=== PATIENT | female | born 1960 | race Caucasian/White ===

== ENCOUNTER 2020-07-29 06:35 | Emergency (ER) | payer OTHER ==
[2020-07-29] MEDS ORDERED: solu-MEDROL 125 MG IM ONE (06:47)
[2020-07-29] MEDS ORDERED: BENADRYL 25 MG CAPSULE PO ONE (06:48)
[2020-07-29] MEDS ORDERED: Pepcid 20 MG PO ONE (06:48)
--- NOTE | 2020-07-29 06:48 | ERPHSYRPT ---
- History of Present Illness Time Seen by Provider: 07/29/20 06:45 Source: patient Exam Limitations: no limitations Physician History: This is a 59-year-old white female who was using hair dye yesterday and she began breaking out last night. Her rash is in the distribution of the scalp where the dye was placed. She did take Benadryl but this morning, she has a worsening rash present. She has no wheezing and she has no difficulty breathing. She did take 2 Benadryl last night but did not seem to help. Quality: itchy Severity: moderate Location: scalp Possible Causes: other (Exposure to hair dye) Associated Symptoms: change in skin texture, rash Travel Risk - International Travel Have you traveled outside of the country in past 3 weeks: No - Coronavirus Screening Are you exhibiting any of the following symptoms?: No Close contact with a COVID-19 positive Pt in past 14-21 Days: No - Review of Systems Constitutional: No Symptoms Eyes: No Symptoms Ears, Nose, & Throat: No Symptoms Respiratory: No Symptoms Cardiac: No Symptoms Abdominal/Gastrointestinal: No Symptoms Genitourinary Symptoms: No Symptoms Musculoskeletal: No Symptoms Skin: Rash Neurological: No Symptoms Psychological: No Symptoms Endocrine: No Symptoms Hematologic/Lymphatic: No Symptoms Immunological/Allergic: No Symptoms All Other Systems: Reviewed and Negative - Past Medical History Pertinent Past Medical History: No Neurological History: No Pertinent History ENT History: No Pertinent History Cardiac History: No Pertinent History Respiratory History: No Pertinent History Endocrine Medical History: No Pertinent History Musculoskeletal History: No Pertinent History GI Medical History: No Pertinent History History: No Pertinent History Psycho-Social History: No Pertinent History Female Reproductive Disorders: No Pertinent History - Past Surgical History Past Surgical History: Yes - Nursing Vital Signs Nursing Vital Signs: Initial Vital Signs Temperature 98.4 F 07/29/20 06:43 Pulse Rate 98 H 07/29/20 06:43 Respiratory Rate 18 07/29/20 06:43 Blood Pressure 183/105 07/29/20 06:43 O2 Sat by Pulse Oximetry 99 07/29/20 06:43 Pain Scale Pain Intensity 5 - Physical Exam General Appearance: no apparent distress, alert, anxiety Eye Exam: PERRL/EOMI, other (Puffiness periorbitally. There is no cellulitis p resent.) Ears, Nose, Throat Exam: normal ENT inspection, moist mucous membranes Neck Exam: non-tender, supple, full range of motion, other (On the neck intubation of the hair lying and on the posterior neck) Respiratory Exam: normal breath sounds, lungs clear, No chest tenderness, No respiratory distress, No wheezing, No stridor Cardiovascular Exam: regular rate/rhythm, normal heart sounds, normal peripheral pulses Gastrointestinal/Abdomen Exam: soft, normal bowel sounds, No tenderness Pelvic Exam: not done Rectal Exam: not done Back Exam: normal inspection, normal range of motion, No CVA tenderness, No vertebral tenderness Extremity Exam: normal inspection, normal range of motion, pelvis stable Skin Exam: rash (In the distribution of the patient's hairline including her bilateral auricles and the posterior neck.) Lymphatic Exam: No adenopathy SpO2 Interpretation: normal O2 Delivery: Room Air - Course Nursing assessment & vital signs reviewed: Yes Ordered Tests: Medication Summary Discontinued Medications Generic Name Dose Route Start Last Admin Trade Name Freq PRN Reason Stop Dose Admin Diphenhydramine HCl 50 mg 07/29/20 06:48 07/29/20 06:52 Benadryl 25 Mg Capsule PO 07/29/20 06:49 50 mg STAT ONE Administration Diphenhydramine HCl Confirm 07/29/20 06:50 Benadryl 25 Mg Capsule Administered 07/29/20 06:51 Dose 50 mg .ROUTE .STK-MED ONE Famotidine 40 mg 07/29/20 06:48 07/29/20 06:52 Pepcid 20 Mg PO 07/29/20 06:49 40 mg STAT ONE Administration Famotidine Confirm 07/29/20 06:50 Pepcid 20 Mg Administered 07/29/20 06:51 Dose 40 mg .ROUTE .STK-MED ONE Methylprednisolone Sodium Succinate 125 mg 07/29/20 06:47 07/29/20 06:53 Solu-Medrol 125 Mg IM 07/29/20 06:48 125 mg STAT ONE Administration Methylprednisolone Sodium Succinate Confirm 07/29/20 06:50 Solu-Medrol 125 Mg Administered 07/29/20 06:51 Dose 125 mg .ROUTE .STK-MED ONE - Progress Progress: unchanged Progress Note: 07/29/20 07:00 Blood pressure of patient is elevated. She is not taking her blood pressure medicine needs to do so. She does not have a local doctor and will provide her with a list of local doctors that are taking patients. Counseled pt/family regarding: diagnosis, need for follow-up - Departure Departure Disposition: Home Clinical Impression: Allergic reaction Condition: Stable Critical Care Time: No Prescriptions: Prednisone 10 mg [Deltasone 10 mg] 10 mg PO TID #12 tablet Famotidine 20 mg [Pepcid 20 MG] 20 mg PO DAILY #10 tablet
[2020-07-29] MEDS ORDERED: BENADRYL 25 MG CAPSULE ONE (06:50)
[2020-07-29] MEDS ORDERED: solu-MEDROL 125 MG ONE (06:50)
[2020-07-29] MEDS ORDERED: Pepcid 20 MG ONE (06:50)
[2020-07-29 07:22] VITALS: BP 188/104; PULSE 88; O2SAT 98
== END 2020-07-29 07:29 | disposition home or self-care (01) ==
LOC: ED 06:35
DX: R21 Rash and other nonspecific skin eruption (principal); T78.49XA Other allergy, initial encounter; L29.9 Pruritus, unspecified
CPT/HCPCS: 96372; 99284; J2930; A9270-GY

== ENCOUNTER 2021-02-21 09:57 | Emergency (ER) | payer OTHER ==
[2021-02-21] MEDS ORDERED: DUONEB 0.5-3 MG/3 ml Neb IH ONE ×2 (10:21→10:51)
[2021-02-21] MEDS ORDERED: solu-MEDROL 125 MG, Sterile H2O 10 ml 2 ML IV ONE ×2 (10:21)
[2021-02-21] MEDS ORDERED: solu-MEDROL ONE (10:28)
[2021-02-21] MEDS ORDERED: Sterile H2O 10 ml IJ ONE (10:28)
[2021-02-21 10:54] LABS: Absolute Neutrophil Ct (ANC) 5.73 (1.4-6.9); BASOPHIL % 0.1 % (0.0-0.4); Basophil (Absolute #) 0.01 (0-0.4); Eosinophil (Absolute #) 0.09 (0-0.5); Hematocrit 43.2 % (35-47); Hemoglobin 13.8 gm/dl (12.0-16.0); Lymphocyte (Absolute #) 2.38 (1.0-4.6); Lymphocytes % 26.5 % (24.0-44.0); Mean Cell Volume 84.5 fl (78-100); Mean Corpuscular Hgb Concent. 31.9 g/dl (32-36); Mean Platelet Volume 12.2 fl (7.5-11.0); Monocyte (Absolute #) 0.78 (0.0-1.3); Monocytes % 8.7 % (0.0-12.0); Neutrophil % 63.7 % (36.0-66.0); Platelet Count 247 K/mm3 (150-450); Red Blood Count 5.11 M/mm3 (4.1-5.4); Red Cell Distribution Width 14.7 % (11.5-14.0)
[2021-02-21 11:08] LABS: Appearance SLIGHTLY CLOUDY (CLEAR); Bilirubin NEGATIVE (NEGATIVE); Blood NEGATIVE Ery/ul (0-5); Epithelial Cells RARE /HPF (FEW); Glucose NEGATIVE (NEGATIVE); Hyaline Casts 0-2 /LPF (0-2); Ketones NEGATIVE (NEGATIVE); Leukocyte Esterase NEGATIVE (NEGATIVE); Mucus SLIGHT /HPF (NEGATIVE); Nitrite NEGATIVE (NEGATIVE); Protein,Urine Dip NEGATIVE (Negative); Specific Gravity 1.013 (1.005-1.025); Urobilinogen NEGATIVE mg/dL (0-1)
[2021-02-21 11:14] LABS: ALBUMIN 4.4 g/dL (3.5-5.0); ALKALINE PHOSPHATASE 84 U/L (38-126); ANION GAP 17.5 MEQ/L (5-15); BLOOD UREA NITROGEN 7 mg/dL (7-17); CHLORIDE 102 mmol/L (98-107); Calcium 10.4 mg/dL (8.4-10.2); Carbon Dioxide 24 mmol/L (22-30); Creatinine 1 0.61 mg/dL (0.52-1.04); EST GLOMERULAR FILTRATION RATE > 60.0 ML/MIN; Glucose 95 mg/dL (74-106); MAGNESIUM 1.8 mg/dL (1.6-2.3); NT PRO BNP 25.3 pg/mL (0-900); Potassium 4.4 mmol/L (3.5-5.1); SGOT/AST 31 U/L (14-36); SGPT/ALT 26 U/L (0-35); SODIUM 139 mmol/L (137-145); Total Protein 7.9 g/dL (6.3-8.2)
--- NOTE | 2021-02-21 11:28 | ERPHSYRPT ---
- History of Present Illness Time Seen by Provider: 02/21/21 10:03 Source: patient Exam Limitations: no limitations Patient Subjective Stated Complaint: Pt states "I started to feel bad on and now I have horrible congestion and been coughing up thick yellow and green mucus." Triage Nursing Assessment: Pt presented alert and oriented X 3, skin pwd. Pt ambulates with an upright steady gait, able to speak in clear full sentences pt slightly tachypneic with occasional productive cough. Physician History: 60 years old female with history of tobacco abuse, COPD, hypertension presented in the ER with 3 to 4 days history of increasing cough productive of yellow- green sputum moderate in amount with associated increase sinus/chest congestion and wheezing. Patient has been using inhalers as recommended and also tried [id number] but does not seem it is loosening up and she is having choking sensation with repeated coughing bouts. Denies any chest pain but has generalized soreness. No fever or chills reported. Denies any palpitations. Continues to smoke 1 to 2 packs a day. Timing/Duration: day(s) (3), gradual onset, worse Cough Quality/Degree: moderate, productive cough, sputum Possible Cause: occasional episodes Modifying Factors: Improves With: albuterol inhaler. Worsens With: coughing Associated Symptoms: cough, nasal congestion, nasal drainage, sinus infection, wheezing, No fever, No chest pain/soreness, No dizziness, No earache, No facial pain, No headache, No lightheadedness, No muscle aches, No shortness of breath, No sore throat Allergies/Adverse Reactions: hair dye Allergy (Intermediate, Uncoded 07/29/20 07:04) Rash Home Medications: Albuterol Sulfate 2.5 mg IH DAILY 02/21/21 [History] Albuterol Sulfate [Proair Digihaler] 90 mcg IH DAILY 02/21/21 [History] lisinopriL [Lisinopril] 20 mg PO DAILY 02/21/21 [History] Hx Tetanus, Diphtheria Vaccination/Date Given: No Hx Influenza Vaccination/Date Given: No Hx Pneumococcal Vaccination/Date Given: No Immunizations Up to Date: Yes Travel Risk - International Travel Have you traveled outside of the country in past 3 weeks: No - Coronavirus Screening Are you exhibiting any of the following symptoms?: Yes Symptoms: Cough: New Onset Close contact with a COVID-19 positive Pt in past 14-21 Days: No - Vaccine Status Have you recieved a Covid-19 vaccination: No - Review of Systems Constitutional: Fatigue Eyes: No Symptoms Ears, Nose, & Throat: Nose Congestion, Sinus Drainage Respiratory: Cough, Wheezing Cardiac: No Symptoms Abdominal/Gastrointestinal: No Symptoms Genitourinary Symptoms: No Symptoms Musculoskeletal: No Symptoms Skin: No Symptoms Neurological: No Symptoms Psychological: No Symptoms Endocrine: No Symptoms Hematologic/Lymphatic: No Symptoms Immunological/Allergic: No Symptoms - Past Medical History Pertinent Past Medical History: Yes Neurological History: No Pertinent History ENT History: No Pertinent History Cardiac History: Hypertension Respiratory History: COPD Endocrine Medical History: No Pertinent History Musculoskeletal History: No Pertinent History GI Medical History: No Pertinent History History: No Pertinent History Psycho-Social History: Attention Deficit Disorder, Depression Female Reproductive Disorders: No Pertinent History - Past Surgical History Past Surgical History: No - Social History Smoking Status: Current every day smoker How long have you smoked: years Exposure to second hand smoke: Yes Drug Use: none Patient Lives Alone: Yes - Female History Hx Now: No - Nursing Vital Signs Nursing Vital Signs: Initial Vital Signs Temperature 98.0 F 02/21/21 10:01 Pulse Rate 90 02/21/21 10:01 Respiratory Rate 22 02/21/21 10:01 Blood Pressure 190/102 02/21/21 10:01 O2 Sat by Pulse Oximetry 92 L 02/21/21 10:01 Pain Scale Pain Intensity 0 - Physical Exam General Appearance: no apparent distress, alert Eye Exam: PERRL/EOMI Ears, Nose, Throat Exam: TMs normal, pharyngeal erythema Neck Exam: normal inspection, non-tender, supple, full range of motion Respiratory Exam: diminished breath sounds, wheezing, No respiratory distress, No accessory muscle use Cardiovascular Exam: regular rate/rhythm, normal heart sounds Gastrointestinal/Abdomen Exam: soft, normal bowel sounds Back Exam: normal inspection, normal range of motion Extremity Exam: normal inspection, normal range of motion Neurologic Exam: alert, oriented x 3, cooperative, lead coater II-XII nml as tested Skin Exam: normal color SpO2 Interpretation: normal SpO2: 95 O2 Delivery: Room Air - Course EKG Interpreted by Me: RATE (79), Sinus Rhythm, NORMAL AXIS, NORMAL INTERVALS, NORMAL QRS Ordered Tests: Active Orders 24 hr Category Date Time Status Scraper Operator STAT Care 02/21/21 10:21 Active EKG-ER Only STAT Care 02/21/21 10:21 Active IV Insertion STAT Care 02/21/21 10:21 Active CHEST 1 VIEW (PORTABLE) Stat Exams 02/21/21 10:21 Taken BLOOD CULTURE Stat Lab 02/21/21 10:12 Received CBC W DIFF Stat Lab 02/21/21 10:12 Completed CMP Stat Lab 02/21/21 10:12 Completed Lactic Acid Stat Lab 02/21/21 10:21 Completed MAGNESIUM Stat Lab 02/21/21 10:12 Completed NT PRO BNP Stat Lab 02/21/21 10:12 Completed TROPONIN Q3H Lab 02/21/21 10:12 Completed TROPONIN Q3H Lab 02/21/21 13:30 Ordered TROPONIN Q3H Lab 02/21/21 16:30 Ordered TROPONIN Q3H Lab 02/21/21 19:30 Ordered TROPONIN Q3H Lab 02/21/21 22:30 Ordered UA W/RFX UR CULTURE Stat Lab 02/21/21 10:27 Completed Respiratory Therapy Assessment DAILY RT 02/21/21 10:58 Completed Medication Summary Discontinued Medications Generic Name Dose Route Start Last Admin Trade Name Freq PRN Reason Stop Dose Admin Albuterol/Ipratropium 3 ml 02/21/21 10:21 02/21/21 10:54 Duoneb 0.5-3 Mg/3 Ml Neb IH 02/21/21 10:22 3 ml STAT ONE Administration Albuterol/Ipratropium Confirm 02/21/21 10:51 Duoneb 0.5-3 Mg/3 Ml Neb Administered 02/21/21 10:52 Dose 3 ml IH .STK-MED ONE Methylprednisolone Sodium 0 mg 02/21/21 10:21 02/21/21 10:29 Succinate 125 mg/ Sterile IV 02/21/21 10:22 125 mg Water 2 ml STAT ONE Administration Methylprednisolone Sodium Succinate Confirm 02/21/21 10:28 Solu-Medrol Administered 02/21/21 10:29 Dose 125 mg .ROUTE .STK-MED ONE Sterile Water Confirm 02/21/21 10:28 Sterile H2o 10 Ml Administered 02/21/21 10:29 Dose 10 ml IJ .STK-MED ONE Lab/Rad Data: Laboratory Result Diagrams 02/21/21 10:12 02/21/21 10:12 Laboratory Results 0802/21/21 02/21/21 Range/Units 10:27 10:21 10:12 WBC (4.0-10.5) K/mm3 RBC (4.1-5.4) M/mm3 Hgb (12.0-16.0) gm/dl Hct (35-47) % MCV (78-100) fl MCH (26-32) pg MCHC (32-36) g/dl RDW (11.5-14.0) % Plt Count (150-450) K/mm3 MPV (7.5-11.0) fl Gran % (36.0-66.0) % Eos # (Auto) (0-0.5) Absolute Lymphs (auto) (1.0-4.6) Absolute Monos (auto) (0.0-1.3) Lymphocytes % (24.0-44.0) % Monocytes % (0.0-12.0) % Eosinophils % (0.00-5.0) % Basophils % (0.0-0.4) % Absolute Granulocytes (1.4-6.9) Basophils # (0-0.4) Sodium (137-145) mmol/L Potassium (3.5-5.1) mmol/L Chloride (98-107) mmol/L Carbon Dioxide (22-30) mmol/L Anion Gap (5-15) MEQ/L BUN (7-17) mg/dL Creatinine (0.52-1.04) mg/dL Estimated GFR ML/MIN Glucose (74-106) mg/dL Lactic Acid 0.7 (0.4-2.0) Calcium (8.4-10.2) mg/dL Magnesium (1.6-2.3) mg/dL Total Bilirubin (0.2-1.3) mg/dL AST (14-36) U/L ALT (0-35) U/L Alkaline Phosphatase (38-126) U/L Troponin I < 0.012 (0.000-0.034) ng/mL NT-Pro-B Natriuret Pep (0-900) pg/mL Serum Total Protein (6.3-8.2) g/dL Albumin (3.5-5.0) g/dL Urine Color YELLOW (YELLOW) Urine Appearance SLIGHTLY CLOUDY (CLEAR) Urine pH 6.0 (5-6) Ur Specific Trinity 1.013 (1.005-1.025) Urine Protein NEGATIVE (Negative) Urine Ketones NEGATIVE (NEGATIVE) Urine Blood NEGATIVE (0-5) Bruce/ul Urine Nitrite NEGATIVE (NEGATIVE) Urine Bilirubin NEGATIVE (NEGATIVE) Urine Urobilinogen NEGATIVE (0-1) mg/dL Ur Leukocyte Esterase NEGATIVE (NEGATIVE) Urine WBC (Auto) NONE (0-5) /HPF Urine RBC (Auto) NONE (0-2) /HPF U Hyaline Cast (Auto) 0-2 (0-2) /LPF U Epithel Cells (Auto) RARE (FEW) /HPF Urine Bacteria (Auto) NONE (NEGATIVE) /HPF Urine Mucus (Auto) SLIGHT (NEGATIVE) /HPF Urine Culture Reflexed NO (NO) Urine Glucose NEGATIVE (NEGATIVE) mg/dL 02/21/21 02/21/21 Range/Units 10:12 10:12 WBC 9.0 (4.0-10.5) K/mm3 RBC 5.11 (4.1-5.4) M/mm3 Hgb 13.8 (12.0-16.0) gm/dl Hct 43.2 (35-47) % MCV 84.5 (78-100) fl MCH 27.0 (26-32) pg MCHC 31.9 L (32-36) g/dl RDW 14.7 H (11.5-14.0) % Plt Count 247 (150-450) K/mm3 MPV 12.2 H (7.5-11.0) fl Gran % 63.7 (36.0-66.0) % Eos # (Auto) 0.09 (0-0.5) Absolute Lymphs (auto) 2.38 (1.0-4.6) Absolute Monos (auto) 0.78 (0.0-1.3) Lymphocytes % 26.5 (24.0-44.0) % Monocytes % 8.7 (0.0-12.0) % Eosinophils % 1.0 (0.00-5.0) % Basophils % 0.1 (0.0-0.4) % Absolute Granulocytes 5.73 (1.4-6.9) Basophils # 0.01 (0-0.4) Sodium 139 (137-145) mmol/L Potassium 4.4 (3.5-5.1) mmol/L Chloride 102 (98-107) mmol/L Carbon Dioxide 24 (22-30) mmol/L Anion Gap 17.5 H (5-15) MEQ/L BUN 7 (7-17) mg/dL Creatinine 0.61 (0.52-1.04) mg/dL Estimated GFR > 60.0 ML/MIN Glucose 95 (74-106) mg/dL Lactic Acid (0.4-2.0) Calcium 10.4 H (8.4-10.2) mg/dL Magnesium 1.8 (1.6-2.3) mg/dL Total Bilirubin 0.50 (0.2-1.3) mg/dL AST 31 (14-36) U/L ALT 26 (0-35) U/L Alkaline Phosphatase 84 (38-126) U/L Troponin I (0.000-0.034) ng/mL NT-Pro-B Natriuret Pep 25.3 (0-900) pg/mL Serum Total Protein 7.9 (6.3-8.2) g/dL Albumin 4.4 (3.5-5.0) g/dL Urine Color (YELLOW) Urine Appearance (CLEAR) Urine pH (5-6) Ur Specific Trinity (1.005-1.025) Urine Protein (Negative) Urine Ketones (NEGATIVE) Urine Blood (0-5) Bruce/ul Urine Nitrite (NEGATIVE) Urine Bilirubin (NEGATIVE) Urine Urobilinogen (0-1) mg/dL Ur Leukocyte Esterase (NEGATIVE) Urine WBC (Auto) (0-5) /HPF Urine RBC (Auto) (0-2) /HPF U Hyaline Cast (Auto) (0-2) /LPF U Epithel Cells (Auto) (FEW) /HPF Urine Bacteria (Auto) (NEGATIVE) /HPF Urine Mucus (Auto) (NEGATIVE) /HPF Urine Culture Reflexed (NO) Urine Glucose (NEGATIVE) mg/dL - Progress Progress: improved Air Movement: good Progress Note: 02/21/21 12:13 60 years old is evaluated for worsening cough and wheezing without significant shortness of breath. Patient has normal white count, grossly unremarkable chemistries. Negative troponins. EKG did not show any acute ischemic changes. Patient's continues to smoke. Symptoms are consistent with COPD exacerbation/bronchitis. Given Solu-Medrol in here. We will continue with short course of steroid and antibiotics to go home. Does not seem cardiac in nature at all. Does not seem pulmonary embolism and have not done any work-up, seems more of a COPD bronchitis from initial URI. Recommended outpatient follow-up and smoking cessation. Discussed signs symptoms of worsening needing return to ER which she seems understanding. 02/21/21 12:15 Blood Culture(s) Obtained: Yes Antibiotics given: Yes Counseled pt/family regarding: lab results, diagnosis, need for follow-up, rad results - Departure Departure Disposition: Home Clinical Impression: COPD with acute bronchitis Condition: Stable Critical Care Time: No Referrals: ADALGISA BALDERRAMA [Primary Care Provider] - (1-2 days for reevaluation) Instructions: Chronic Obstructive Pulmonary Disease, Cough, Adult (DC), Exacerbation of COPD (DC) Additional Instructions: Do not smoke. Continue with your inhalers. Continue with steroid and antibiotics. Follow-up with primary care physician for reevaluation. Return to ER for worsening cough or if develop fever chills/shortness of breath etc. Prescriptions: Prednisone 20 mg [Deltasone 20 mg] 60 mg PO DAILY 5 Days #15 tablet Azithromycin 250 mg [Zithromax 250 MG TABLET] 250 mg PO ZPACK #6 tablet
[2021-02-21 12:05] VITALS: BP 155/91
[2021-02-21 12:28] VITALS: PULSE 90; O2SAT 97
--- NOTE | 2021-02-21 17:28 | XRAY ---
Indication: Pneumonia. Comparison: None Portable chest clear. Heart not enlarged. Bony thorax intact with mild degenerative changes.
== END 2021-02-21 12:29 | disposition home or self-care (01) ==
LOC: ED 09:57
DX: Z87.891 Personal history of nicotine dependence (principal); I10 Essential (primary) hypertension; Z79.899 Other long term (current) drug therapy
CPT/HCPCS: 36000; 36415; 71045; 80053; 81001; 83605; 83735; 83880; 84484; 85025; 87040; 93005; 93041; 94640; 96374; 99284; J2930; A9270-GY

== ENCOUNTER 2021-09-05 12:17 | Emergency (ER) | payer OTHER ==
[2021-09-05] MEDS ORDERED: DUONEB 0.5-3 MG/3 ml Neb IH ONE ×2 (12:37→12:55)
[2021-09-05 12:46] LABS: Hematocrit 47.4 % (35-47); Hemoglobin 15.4 gm/dl (12.0-16.0); Mean Cell Volume 81.4 fl (78-100); Mean Corpuscular Hemoglobin 26.5 pg (26-32); Mean Corpuscular Hgb Concent. 32.5 g/dl (32-36); Mean Platelet Volume 12.1 fl (7.5-11.0); Platelet Count 146 K/mm3 (150-450); Red Blood Count 5.82 M/mm3 (4.1-5.4); Red Cell Distribution Width 14.9 % (11.5-14.0); White Blood Count 4.4 K/mm3 (4.0-10.5)
[2021-09-05] MEDS ORDERED: PULMICORT 0.5 MG/2 ML RESPULES IH ONE ×2 (12:46→12:50)
--- NOTE | 2021-09-05 12:49 | ERPHSYRPT ---
- History of Present Illness Time Seen by Provider: 09/05/21 12:46 Source: patient Exam Limitations: no limitations Patient Subjective Stated Complaint: pt reports shortness of breath for approx one week, pt states she has chest congestion that she feels is getting worse, pt states when she coughs she becomes short of breath, pt states she was taking some OTC medication for mucous with no results. Triage Nursing Assessment: pt is aox3, pupils perrl, afebrile, pt is short of breath on arrival but is able to easily ambulate to t area, pt is able to speak in full sentences, pt with expiratory wheezes heard posteriorly to the upper and lower bilat lobes, intermittent cough noted upon exam, pt radial pulses strong and equal, cap refill < 3 seconds, pt skin pink warm dry, no edema appreciated. Physician History: pt reports shortness of breath for approx one week, pt states she has chest congestion that she feels is getting worse, pt states when she coughs she becomes short of breath, pt states she was taking some OTC medication for mucous with no results. Timing/Duration: day(s) (5-7 days) Severity of Dyspnea-Max: moderate Severity of Dyspnea-Current: moderate Possible Cause: frequent episodes Associated Symptoms: cough, wheezing Allergies/Adverse Reactions: hair dye Allergy (Intermediate, Uncoded 09/05/21 12:29) Rash Home Medications: Albuterol Sulfate 2.5 mg IH DAILY 02/21/21 [History] Albuterol Sulfate [Proair Digihaler] 90 mcg IH DAILY 02/21/21 [History] lisinopriL [Lisinopril] 20 mg PO DAILY 02/21/21 [History] Hx Tetanus, Diphtheria Vaccination/Date Given: Yes Hx Influenza Vaccination/Date Given: No Hx Pneumococcal Vaccination/Date Given: No Immunizations Up to Date: Yes Travel Risk - International Travel Have you traveled outside of the country in past 3 weeks: No - Coronavirus Screening Are you exhibiting any of the following symptoms?: Yes Symptoms: Cough: New Onset, Shortness of Breath Close contact with a COVID-19 positive Pt in past 14-21 Days: No - Vaccine Status Have you recieved a Covid-19 vaccination: No - Review of Systems Constitutional: No Fever, No Chills Eyes: No Symptoms Ears, Nose, & Throat: No Symptoms Respiratory: Cough, Dyspnea, Dyspnea on Exertion (PAGE), Wheezing Cardiac: No Chest Pain, No Edema, No Syncope Abdominal/Gastrointestinal: No Abdominal Pain, No Nausea, No Vomiting, No Diarrhea Genitourinary Symptoms: No Dysuria Musculoskeletal: No Back Pain, No Neck Pain Skin: No Rash Neurological: No Dizziness, No Focal Weakness, No Sensory Changes Psychological: No Symptoms Endocrine: No Symptoms All Other Systems: Reviewed and Negative - Past Medical History Pertinent Past Medical History: Yes Neurological History: No Pertinent History ENT History: No Pertinent History Cardiac History: Hypertension Respiratory History: COPD Endocrine Medical History: No Pertinent History Musculoskeletal History: No Pertinent History GI Medical History: No Pertinent History History: No Pertinent History Psycho-Social History: Attention Deficit Disorder, Depression Female Reproductive Disorders: No Pertinent History - Past Surgical History Past Surgical History: No - Social History Smoking Status: Current every day smoker How long have you smoked: 44 YRS Exposure to second hand smoke: Yes Drug Use: none Patient Lives Alone: Yes - Female History Hx Now: No - Nursing Vital Signs Nursing Vital Signs: Initial Vital Signs Temperature 97.9 F 09/05/21 12:18 Pulse Rate 102 H 09/05/21 12:18 Respiratory Rate 24 09/05/21 12:18 Blood Pressure 147/99 09/05/21 12:18 O2 Sat by Pulse Oximetry 97 09/05/21 12:18 Pain Scale Pain Intensity 0 - Physical Exam General Appearance: no apparent distress, alert Eye Exam: PERRL/EOMI Neck Exam: normal inspection, supple Respiratory Exam: diminished breath sounds, crackles/rales, rhonchi, wheezing Cardiovascular/Chest Exam: normal heart sounds, regular rate/rhythm Abdominal/Gastrointestinal Exam: soft, No tenderness, No distention, No mass Extremity Exam: non-tender, normal range of motion, normal inspection, no calf tenderness, no pedal edema Neurologic Exam: alert, oriented x 3, cooperative, rehabilitation case coordinator II-XII nml as tested, sensation nml, No motor deficits Skin Exam: normal color, warm, No dry SpO2 Interpretation: normal SpO2: 97 O2 Delivery: Room Air - Course Nursing assessment & vital signs reviewed: Yes - Radiology Exams Chest X-ray Interpretation: Reviewed by me (COPD changes), No Pneumonia Ordered Tests: Active Orders 24 hr Category Date Time Status Oxygen-ED Only Nasal Cannula 2 lpm Care 09/05/21 12:37 Active CHEST 2 VIEWS (PA AND LAT) Stat Exams 09/05/21 12:37 Taken CBC W DIFF Stat Lab 09/05/21 12:37 Completed CMP Stat Lab 09/05/21 12:37 Completed Manual Differential NC Stat Lab 09/05/21 12:37 Completed TROPONIN Stat Lab 09/05/21 12:37 Completed Medication Summary Generic Name Dose Route Start Last Admin Trade Name Freq PRN Reason Stop Dose Admin Ceftriaxone Sodium/Dextrose 1 g in 50 mls @ 100 mls/hr 09/05/21 13:18 Rocephin 1 Gm-D5w 50 Ml Bag IV 09/05/21 13:47 STAT STA Discontinued Medications Generic Name Dose Route Start Last Admin Trade Name Freq PRN Reason Stop Dose Admin Albuterol/Ipratropium 3 ml 09/05/21 12:37 09/05/21 13:00 Ipratropium/Albuterol Sulfate 3 Ml Ampul.Neb IH 09/05/21 12:38 3 ml STAT ONE Administration Albuterol/Ipratropium Confirm 09/05/21 12:55 Ipratropium/Albuterol Sulfate 3 Ml Ampul.Neb Administered 09/05/21 12:56 Dose 3 ml IH .STK-MED ONE Budesonide 0.5 mg 09/05/21 12:46 Budesonide 0.5 Mg/2 Ml Ampul.Neb. IH 09/05/21 12:47 ONCE ONE Methylprednisolone Sodium 0 mg 09/05/21 13:18 Succinate 125 mg/ Sterile IV 09/05/21 13:19 Water 2 ml STAT ONE Lab/Rad Data: Laboratory Result Diagrams 09/05/21 12:37 09/05/21 12:37 Laboratory Results 09/05/21 09/05/21 Range/Units 12:37 12:37 WBC 4.4 (4.0-10.5) K/mm3 RBC 5.82 H (4.1-5.4) M/mm3 Hgb 15.4 (12.0-16.0) gm/dl Hct 47.4 H (35-47) % MCV 81.4 (78-100) fl MCH 26.5 (26-32) pg MCHC 32.5 (32-36) g/dl RDW 14.9 H (11.5-14.0) % Plt Count 146 L (150-450) K/mm3 MPV 12.1 H (7.5-11.0) fl Sodium 137 (137-145) mmol/L Potassium 3.6 (3.5-5.1) mmol/L Chloride 100 (98-107) mmol/L Carbon Dioxide 25 (22-30) mmol/L Anion Gap 15.0 (5-15) MEQ/L BUN 9 (7-17) mg/dL Creatinine 0.61 (0.52-1.04) mg/dL Estimated GFR > 60.0 ML/MIN Glucose 124 H (74-106) mg/dL Calcium 9.1 (8.4-10.2) mg/dL Total Bilirubin 0.60 (0.2-1.3) mg/dL AST 54 H (14-36) U/L ALT 36 H (0-35) U/L Alkaline Phosphatase 80 (38-126) U/L Troponin I < 0.012 (0.000-0.034) ng/mL Serum Total Protein 8.2 (6.3-8.2) g/dL Albumin 4.5 (3.5-5.0) g/dL - Progress Progress: improved Air Movement: good Blood Culture(s) Obtained: No Antibiotics given: Yes Counseled pt/family regarding: lab results, diagnosis, need for follow-up, rad results, smoking cessation - Departure Departure Disposition: Home Clinical Impression: COPD with acute bronchitis Condition: Stable Critical Care Time: Yes Critical Care Time(excluding separately billable procedures): Critical 30-74 mins Referrals: ADALGISA BALDERRAMA [Primary Care Provider] - Follow up/PCP as directed Instructions: Chronic Obstructive Pulmonary Disease, Exacerbation of COPD (DC) Additional Instructions: Discharge/Care Plan JOHANNY ROSALES was seen on 09/05/21 in the Emergency Room. The patient was counseled regarding Diagnosis,Lab results, Imaging studies, need for follow up and when to return to the Emergency Room. Prescriptions given: Discharge Note I have spoken with the patient and/or caregivers. I have explained the patient's condition, diagnosis and treatment plan based on the information available to me at this time. I have answered the patient's and/or caregiver's questions and addressed any concerns. The patient and/or caregivers have as good understanding of the patient's diagnosis, condition and treatment plan as can be expected at this point. The vital signs have been stable. The patient's condition is stable and appropriate for discharge from the emergency department. The patient will pursue further outpatient evaluation with the primary care physician or other designated or consulting physician as outlined in the discharge instructions. The patient and/or caregivers are agreeable to this plan of care and follow-up instructions have been explained in detail. The patient and/or caregivers have received these instruction. The patient/and or caregivers are aware that any significant change in condition or worsening of symptoms should prompt an immediate return to this or the closest emergency department or call 911. BOBBYJOHANNY ROBERTS was seen on 09/05/21 n the Emergency Room. At that time you were treated for an emergent condition, during your visit Laboratory, Radiology and/or other procedures may have been ordered. It is very important that you follow-up with your Primary Care Physician ADALGISA BALDERRAMA within the next 24-48 hours to review your Emergency Room visit and the final results of testing that was ordered. Some test results such as Urine Cultures, Blood Cultures, and other cultures if ordered will not be finalized for 24-48 hours. If you do not have a Primary Care Provider please call the medical records department at [phone] ext [phone] to obtain a copy of your results or you may sign into our patient portal to obtain these results by visiting us @ [email or web address] and completing the following steps: 1. Click on the Patient Portal link 2. Click the Patient Self Enrollment Link to complete the enrollment form and entering your 3. Once the enrollment form is completed you will receive an email with a temporary ID and password at the email address you provided. 4. Next choose a user name and password. Your user name must be at least 4 characters long and your password must be at least 4 characters long. 5. Choose a security question from the list and provide your answer to the question. If you already have signed into the Health Portal you may access your Health Care Information 13/02 by the following steps: 1. Login to our website @ [email or web address] 2. Enter your original user name and password. FAQS The [facility] Health Portal is an online tool that contains your Lab Results, Radiology Reports, Visit History, Discharge Instructions and Health Summary Lab and Radiology Results will not be available for 72 hours on the portal. The Portal is a secure site, passwords are encryted and URLs are re-written so they cannot be copied and pasted. You and authorized family members are the only ones who can access your Portal. Also there is a timeout feature that protects your information if you leave the Portal page open. If you have technical difficulty please use the Contact Us link on the page this will allow you to submit any questions you have regarding the Portal or you may contact the Medical Record Department at [phone] ext [phone]. Prescriptions: Cephalexin Mh 500 mg [Keflex 500 mg] 500 mg PO Q6H #40 cap Methylprednisolone Packet [Medrol Dosepack] 4 mg PO UD #21 packet
[2021-09-05 13:02] LABS: ALBUMIN 4.5 g/dL (3.5-5.0); ALKALINE PHOSPHATASE 80 U/L (38-126); BLOOD UREA NITROGEN 9 mg/dL (7-17); CHLORIDE 100 mmol/L (98-107); Calcium 9.1 mg/dL (8.4-10.2); Carbon Dioxide 25 mmol/L (22-30); Creatinine 1 0.61 mg/dL (0.52-1.04); EST GLOMERULAR FILTRATION RATE > 60.0 ML/MIN; Glucose 124 mg/dL (74-106); Potassium 3.6 mmol/L (3.5-5.1); SGOT/AST 54 U/L (14-36); SGPT/ALT 36 U/L (0-35); SODIUM 137 mmol/L (137-145); TROPONIN < 0.012 ng/mL (0.000-0.034); Total Protein 8.2 g/dL (6.3-8.2)
[2021-09-05] MEDS ORDERED: solu-MEDROL 125 MG, Sterile H2O 10 ml 2 ML IV ONE ×2 (13:18)
[2021-09-05] MEDS ORDERED: ROCEPHIN 1 Gm-D5w 50 ml Bag** 1 G/50 ML IVPB IV STA (13:18)
[2021-09-05] MEDS ORDERED: Sterile H2O 10 ml IJ ONE (13:21)
[2021-09-05] MEDS ORDERED: ROCEPHIN 1 Gm-D5w 50 ml Bag** 1 G/50 ML IVPB IV ONE (13:22)
[2021-09-05] MEDS ORDERED: solu-MEDROL ONE (13:22)
[2021-09-05 14:18] VITALS: BP 138/98; PULSE 92; O2SAT 94
[2021-09-05 14:42] LABS: BAND 1 % (0.0-2.0); Lymphocytes 49 % (24-44); Monocyte 6 % (0.0-12.0); Neutrophils 44 % (36.0-66.0); Platelet Estimate DECREASED (NORMAL); Total Cells Counted 100
--- NOTE | 2021-09-05 17:55 | XRAY ---
Indication: Cough and short of breath one week. COPD. Comparison: February 21, 2021. PA/lateral chest remains hyperinflated and clear. Heart not enlarged. Bony thorax intact again with mild osteopenia, degenerative changes, and minimal dextroscoliosis. Impression: Nonacute hyperinflated chest with chronic features.
== END 2021-09-05 14:18 | disposition home or self-care (01) ==
LOC: ED 12:17
DX: J20.9 Acute bronchitis, unspecified (principal); J44.0 Chronic obstructive pulmonary disease with (acute) lower respiratory infection; R06.02 Shortness of breath; R09.89 Other specified symptoms and signs involving the circulatory and respiratory systems; R06.2 Wheezing; R05.9 Cough, unspecified; I10 Essential (primary) hypertension; Z79.899 Other long term (current) drug therapy; Z72.0 Tobacco use; Z79.52 Long term (current) use of systemic steroids
CPT/HCPCS: 36000; 36415; 71046; 80053; 84484; 85025; 93005; 94640; 96374; 99284; 99291; J0696; J2930; A9270-GY

== ENCOUNTER 2022-05-03 23:12 | Emergency (ER) | payer OTHER ==
[2022-05-03 23:21] VITALS: BP 142/107; PULSE 115; O2SAT 97
--- NOTE | 2022-05-03 23:25 | ERPHSYRPT ---
- History of Present Illness Time Seen by Provider: 05/03/22 23:20 Source: patient, police Exam Limitations: intoxication Patient Subjective Stated Complaint: drank a lot of alcohol - medical clearance for fdc Triage Nursing Assessment: Pt beligerent. Difficult to assess. Physician History: Patient is a 61-year-old loud aggressive intoxicated female who has been drinking heavily today. She is under arrest and presents with law enforcement. They requested medical clearance. Timing/Duration: today Severity: moderate Associated Symptoms: denies symptoms Allergies/Adverse Reactions: hair dye Allergy (Intermediate, Uncoded 05/03/22 23:14) Rash Home Medications: Albuterol Sulfate 2.5 mg IH DAILY 02/21/21 [History] Albuterol Sulfate [Proair Digihaler] 90 mcg IH DAILY 02/21/21 [History] lisinopriL [Lisinopril] 20 mg PO DAILY 02/21/21 [History] Hx Tetanus, Diphtheria Vaccination/Date Given: Yes Hx Influenza Vaccination/Date Given: No Hx Pneumococcal Vaccination/Date Given: No Travel Risk - International Travel Have you traveled outside of the country in past 3 weeks: No - Coronavirus Screening Are you exhibiting any of the following symptoms?: No - Vaccine Status Have you recieved a Covid-19 vaccination: No - Review of Systems All Other Systems: Unable due to condition - Past Medical History Pertinent Past Medical History: Yes Neurological History: No Pertinent History ENT History: No Pertinent History Cardiac History: Hypertension Respiratory History: COPD Endocrine Medical History: No Pertinent History Musculoskeletal History: No Pertinent History GI Medical History: No Pertinent History History: No Pertinent History Psycho-Social History: Attention Deficit Disorder, Depression Female Reproductive Disorders: No Pertinent History Other Medical History: Pt poor historian. Unable to obtain from patient, retreived from medical record. - Past Surgical History Past Surgical History: No Other Surgical History: Pt poor historian. Unable to obtain from patient, retreived from medical record. - Social History Smoking Status: Current every day smoker How long have you smoked: 44 YRS Exposure to second hand smoke: Yes Drug Use: none Patient Lives Alone: Yes - Nursing Vital Signs Nursing Vital Signs: Initial Vital Signs Temperature 97.8 F 05/03/22 23:13 Pulse Rate 115 H 05/03/22 23:13 Respiratory Rate 22 05/03/22 23:13 Blood Pressure 142/107 05/03/22 23:13 O2 Sat by Pulse Oximetry 97 05/03/22 23:13 Pain Scale Pain Intensity 0 - Physical Exam General Appearance: alert, other (Obviously intoxicated) Eye Exam: PERRL/EOMI, eyes nml inspection Ears, Nose, Throat Exam: normal ENT inspection, TMs normal, pharynx normal, moist mucous membranes Neck Exam: normal inspection, non-tender, supple, full range of motion Respiratory Exam: normal breath sounds, lungs clear, No respiratory distress Cardiovascular Exam: regular rate/rhythm, normal heart sounds, normal peripheral pulses Gastrointestinal/Abdomen Exam: soft, normal bowel sounds, No tenderness, No mass Pelvic Exam: not done Rectal Exam: deferred Back Exam: normal inspection, normal range of motion, No CVA tenderness, No virgilio tebral tenderness Extremity Exam: normal inspection, normal range of motion, pelvis stable Neurologic Exam: alert, uncooperative, intoxicated appearance, slurred speech, No motor deficits Skin Exam: normal color, warm, dry, No rash Lymphatic Exam: No adenopathy SpO2 Interpretation: normal SpO2: 97 O2 Delivery: Room Air - Course Nursing assessment & vital signs reviewed: Yes - Progress Progress: unchanged - Departure Departure Disposition: [facility]/Assisted Clinical Impression: Alcohol intoxication Condition: Stable Critical Care Time: No Referrals: ADALGISA BALDERRAMA [Primary Care Provider] - Follow up/PCP as directed
== END 2022-05-03 23:43 ==
LOC: ED 23:12
DX: F10.129 Alcohol abuse with intoxication, unspecified (principal); I10 Essential (primary) hypertension; J44.9 Chronic obstructive pulmonary disease, unspecified; Z72.0 Tobacco use; Z79.899 Other long term (current) drug therapy; Z28.310 Unvaccinated for COVID-19
CPT/HCPCS: 99281

== ENCOUNTER 2023-07-19 18:01 | Observation (INO) | payer OTHER ==
[2023-07-19] MEDS ORDERED: solu-MEDROL 125 MG, Sterile H2O 10 ml 2 ML IV ONE ×2 (18:15)
[2023-07-19] MEDS ORDERED: DUONEB 0.5-3 MG/3 ml Neb IH ONE ×2 (18:15→18:21)
[2023-07-19 18:49] LABS: Hematocrit 43.2 % (35-47); Hemoglobin 14.2 g/dL (12.0-16.0); Mean Cell Volume 82.4 fL (78-100); Mean Corpuscular Hemoglobin 27.1 pg (26-32); Mean Corpuscular Hgb Concent. 32.9 g/dL (32-36); Mean Platelet Volume 12.4 fL (7.5-11.0); Platelet Count 170 x10^3/uL (150-450); Red Blood Count 5.24 x10^6/uL (4.1-5.4); Red Cell Distribution Width 13.5 % (11.5-14.0); White Blood Count 8.7 x10^3/uL (4.0-10.5)
[2023-07-19] MEDS ORDERED: Sterile H2O 10 ml IJ ONE (18:51)
[2023-07-19] MEDS ORDERED: solu-MEDROL ONE (18:51)
[2023-07-19 19:02] LABS: ALBUMIN 4.4 g/dL (3.5-5.0); ANION GAP 12.3 MEQ/L (5-15); BILIRUBIN,TOTAL 0.5 mg/dL (0.2-1.3); Calcium 9.7 mg/dL (8.4-10.2); Creatinine 1 0.53 mg/dL (0.52-1.04); EST GLOMERULAR FILTRATION RATE 105.2 ML/MIN; Potassium 3.7 mmol/L (3.5-5.1); Total Protein 8.4 g/dL (6.3-8.2)
[2023-07-19 19:24] LABS: INFLUENZA B NEGATIVE (NEGATIVE); RESPIRATORY SYNCTIAL VIRUS NEGATIVE (NEGATIVE); SARS-CoV-2 Xpert Express NEGATIVE (NEGATIVE)
--- NOTE | 2023-07-19 19:26 | ERPHSYRPT ---
- History of Present Illness Time Seen by Provider: 07/19/23 18:30 Source: patient Exam Limitations: no limitations Patient Subjective Stated Complaint: pt c/o of being nauseous and is a very poor communicator Triage Nursing Assessment: Pt brought self to the ER, hypertensive, rates pain as 5/10, first the pt stated that she was here for rib pain and then pain that was causing her to be nauseous, and then just nausea with some shortness of evy th, pulses normal, skin n/w/d, lungs coarse and wheezy and diminished in the bases Physician History: Patient is a 62-year-old female presents to our ED for evaluation of bilateral rib pain x 1 da. patient states that she has been experiencing some shortness of breath over the past 2 to 3 days.. She has been using her albuterol inhaler more frequently. Shortness of breath associated with some nausea. No vomiting. Symptoms are progressive. Symptoms are moderate in intensity. No specific worsening improving factors. Patient voices no other complaints or concerns at this time. Portions of this note were created with voice recognition technology. There may be grammatical, spelling, punctuation or sound alike errors Timing/Duration: today Activities at Onset: none Severity of Dyspnea-Max: moderate Severity of Dyspnea-Current: mild Possible Cause: unknown cause Modifying Factors: Improves With: albuterol inhaler Associated Symptoms: cough (Some intermittent coughing and nausea) Allergies/Adverse Reactions: hair dye Allergy (Intermediate, Uncoded 07/19/23 18:14) Rash Home Medications: Albuterol Sulfate [Proair Digihaler] 90 mcg IH DAILY 02/21/21 [History] lisinopriL [Lisinopril] 20 mg PO DAILY 02/21/21 [History] Fluoxetine HCl [Prozac] 40 mg PO DAILY 07/19/23 [History] Metoprolol Succinate 100 mg [Toprol Xl 100 MG] 100 mg PO DAILY 07/19/23 [History] Triamterene/Hydrochlorothiazid [Triamterene-Hctz 37.5-25 mg Tb] 1 each PO DAILY 07/19/23 [History] Hx Tetanus, Diphtheria Vaccination/Date Given: Yes Hx Influenza Vaccination/Date Given: No Hx Pneumococcal Vaccination/Date Given: No Travel Risk - International Travel Have you traveled outside of the country in past 3 weeks: No - Coronavirus Screening Are you exhibiting any of the following symptoms?: No Close contact with a COVID-19 positive Pt in past 14-21 Days: No - Vaccine Status Have you recieved a Covid-19 vaccination: No - Review of Systems Constitutional: No Symptoms, No Fever, No Chills Eyes: No Symptoms Ears, Nose, & Throat: No Symptoms Respiratory: No Symptoms, No Cough, No Dyspnea Cardiac: No Symptoms, No Chest Pain, No Edema, No Syncope Abdominal/Gastrointestinal: No Symptoms, No Abdominal Pain, No Nausea, No Vomiting, No Diarrhea Genitourinary Symptoms: No Symptoms, No Dysuria Musculoskeletal: No Symptoms, No Back Pain, No Neck Pain Skin: No Symptoms, No Rash Neurological: No Symptoms, No Dizziness, No Focal Weakness, No Sensory Changes Psychological: No Symptoms Endocrine: No Symptoms Hematologic/Lymphatic: No Symptoms Immunological/Allergic: No Symptoms All Other Systems: Reviewed and Negative - Past Medical History Pertinent Past Medical History: Yes Neurological History: No Pertinent History ENT History: No Pertinent History Cardiac History: Hypertension Respiratory History: COPD Endocrine Medical History: No Pertinent History Musculoskeletal History: No Pertinent History GI Medical History: No Pertinent History History: No Pertinent History Psycho-Social History: Attention Deficit Disorder, Depression Female Reproductive Disorders: No Pertinent History Other Medical History: . - Past Surgical History Past Surgical History: No Other Surgical History: . - Social History Smoking Status: Current every day smoker How long have you smoked: 44 YRS Exposure to second hand smoke: Yes Drug Use: none Patient Lives Alone: Yes - Nursing Vital Signs Nursing Vital Signs: Initial Vital Signs Pulse Rate 82 07/19/23 18:27 Respiratory Rate 18 07/19/23 18:27 O2 Sat by Pulse Oximetry 95 07/19/23 18:27 Pain Scale Pain Intensity 5 - Physical Exam General Appearance: no apparent distress, alert Eye Exam: PERRL/EOMI, eyes nml inspection Ears, Nose, Throat Exam: hearing grossly normal, normal ENT inspection, normal pharynx Neck Exam: normal inspection, supple Respiratory Exam: diminished breath sounds, rhonchi, wheezing Cardiovascular/Chest Exam: normal heart sounds, regular rate/rhythm Abdominal/Gastrointestinal Exam: soft, No tenderness, No distention, No mass Extremity Exam: non-tender, normal range of motion, normal inspection, no calf tenderness, no pedal edema Neurologic Exam: alert, oriented x 3, cooperative, 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 Tiny gallbladder gravel/stones. Otherwise normal CT PE exam) Ordered Tests: Active Orders 24 hr Category Date Time Status Polisher Balance Screwhead STAT Care 07/19/23 18:15 Active EKG-ER Only STAT Care 07/19/23 18:14 Active IV Insertion STAT Care 07/19/23 18:14 Active Pulse Oximetry (ED) STAT Care 07/19/23 18:14 Active CHEST WITH CONTRAST [CT] Stat Exams 07/19/23 19:27 Taken BLOOD CULTURE Stat Lab 07/19/23 18:42 Received CBC W DIFF Stat Lab 07/19/23 18:30 Completed CMP Stat Lab 07/19/23 18:30 Completed D-DIMER QUANTITATIVE Stat Lab 07/19/23 18:30 Completed Manual Differential NC Stat Lab 07/19/23 18:30 Completed NT PRO BNPII Stat Lab 07/19/23 18:30 Completed TROPONIN Q4H Lab 07/19/23 18:30 Completed TROPONIN Q4H Lab 07/19/23 22:15 Ordered TROPONIN Q4H Lab 07/20/23 02:15 Ordered Respiratory Therapy Assessment DAILY RT 07/19/23 18:27 Active Transfer Order Routine Transfer 07/19/23 Ordered Medication Summary Generic Name Dose Route Start Last Admin Trade Name Freq PRN Reason Stop Dose Admin Ceftriaxone Sodium/Dextrose 2 g in 50 mls @ 100 mls/hr 07/19/23 21:42 Rocephin 2 Gm-D5w 50ml Bag IV 07/19/23 22:11 STAT STA Azithromycin 500 mg in 250 mls @ 250 mls/hr 07/19/23 21:42 Zithromax 500 Mg/ 250 Ml Nacl Premix IV 07/19/23 22:41 STAT STA Discontinued Medications Generic Name Dose Route Start Last Admin Trade Name Freq PRN Reason Stop Dose Admin Albuterol/Ipratropium 3 ml 07/19/23 18:15 07/19/23 18:24 Ipratropium/Albuterol Sulfate 3 Ml Ampul.Neb IH 07/19/23 18:16 3 ml STAT ONE Administration Albuterol/Ipratropium Confirm 07/19/23 18:21 Ipratropium/Albuterol Sulfate 3 Ml Ampul.Neb Administered 07/19/23 18:22 Dose 3 ml IH .STK-MED ONE Methylprednisolone Sodium 0 mg 07/19/23 18:15 07/19/23 18:52 Succinate 125 mg/ Sterile IV 07/19/23 18:16 125 mg Water 2 ml STAT ONE Administration Methylprednisolone Sodium Succinate Confirm 07/19/23 18:51 Methylprednis Sod Succ 125 Mg/2 Ml Vial Administered 07/19/23 18:52 Dose 125 mg .ROUTE .STK-MED ONE Sterile Water Confirm 07/19/23 18:51 Water For Injection,Sterile 10 Ml Vial Administered 07/19/23 18:52 Dose 10 ml IJ .STK-MED ONE Lab/Rad Data: Laboratory Result Diagrams 07/19/23 18:30 07/19/23 18:30 Laboratory Results 07/19/23 07/19/23 07/19/23 Range/Units 18:30 18:30 18:30 WBC (4.0-10.5) x10^3/uL RBC (4.1-5.4) x10^6/uL Hgb (12.0-16.0) g/dL Hct (35-47) % MCV (78-100) fL MCH (26-32) pg MCHC (32-36) g/dL RDW (11.5-14.0) % Plt Count (150-450) x10^3/uL MPV (7.5-11.0) fL Segmented Neutrophils (36.0-66.0) % Lymphocytes (Manual) (24-44) % Monocytes (Manual) (0.0-12.0) % Atypical Lymphocytes % Platelet Estimate (NORMAL) RBC Morphology D-Dimer 0.52 H (0.0-0.50) mg/L Sodium (137-145) mmol/L Potassium (3.5-5.1) mmol/L Chloride (98-107) mmol/L Carbon Dioxide (22-30) mmol/L Anion Gap (5-15) MEQ/L BUN (7-17) mg/dL Creatinine (0.52-1.04) mg/dL Estimated GFR ML/MIN Glucose (74-106) mg/dL Calcium (8.4-10.2) mg/dL Total Bilirubin (0.2-1.3) mg/dL AST (14-36) U/L ALT (0-35) U/L Alkaline Phosphatase (38-126) U/L Troponin I < 0.012 (0.000-0.034) ng/mL NT-Pro-B Natriuret Pep 29.8 (<300) pg/mL Serum Total Protein (6.3-8.2) g/dL Albumin (3.5-5.0) g/dL Influenza Type A Ag (NEGATIVE) Influenza Type B Ag (NEGATIVE) RSV (PCR) (NEGATIVE) SARS-CoV-2 (PCR) (NEGATIVE) 07/19/23 07/19/23 07/19/23 Range/Units 18:30 18:30 18:25 WBC 8.7 (4.0-10.5) x10^3/uL RBC 5.24 (4.1-5.4) x10^6/uL Hgb 14.2 (12.0-16.0) g/dL Hct 43.2 (35-47) % MCV 82.4 (78-100) fL MCH 27.1 (26-32) pg MCHC 32.9 (32-36) g/dL RDW 13.5 (11.5-14.0) % Plt Count 170 (150-450) x10^3/uL MPV 12.4 H (7.5-11.0) fL Segmented Neutrophils 55 (36.0-66.0) % Lymphocytes (Manual) 37 (24-44) % Monocytes (Manual) 1 (0.0-12.0) % Atypical Lymphocytes 7 % Platelet Estimate NORMAL (NORMAL) RBC Morphology NORMAL D-Dimer (0.0-0.50) mg/L Sodium 130 L (137-145) mmol/L Potassium 3.7 (3.5-5.1) mmol/L Chloride 94 L (98-107) mmol/L Carbon Dioxide 27 (22-30) mmol/L Anion Gap 12.3 (5-15) MEQ/L BUN 9 (7-17) mg/dL Creatinine 0.53 (0.52-1.04) mg/dL Estimated GFR 105.2 ML/MIN Glucose 102 (74-106) mg/dL Calcium 9.7 (8.4-10.2) mg/dL Total Bilirubin 0.50 (0.2-1.3) mg/dL AST 40 H (14-36) U/L ALT 20 (0-35) U/L Alkaline Phosphatase 70 (38-126) U/L Troponin I (0.000-0.034) ng/mL NT-Pro-B Natriuret Pep (<300) pg/mL Serum Total Protein 8.4 H (6.3-8.2) g/dL Albumin 4.4 (3.5-5.0) g/dL Influenza Type A Ag POSITIVE (NEGATIVE) Influenza Type B Ag NEGATIVE (NEGATIVE) RSV (PCR) NEGATIVE (NEGATIVE) SARS-CoV-2 (PCR) NEGATIVE (NEGATIVE) - Progress Progress: improved Air Movement: good Progress Note: 62-year-old female presents to our ED for shortness of breath. Physical exam reveals coarse wheezy diminished breath sounds bilaterally. D-dimer positive. CTA chest negative for PE. Patient received albuterol nebulizer treatment Solu- Medrol Rocephin and azithromycin. Patient will be admitted for COPD exacerbation patient accepted by Dr. Philip at 9:40 PM. CBC CMP reveals hyponatremia at 130. Troponin negative. 07/19/23 21:46 Portions of this note were created with voice recognition technology. There may be grammatical, spelling, punctuation or sound alike errors Complexity problem addressed is moderate acute complicated No critical care time Complexity of data reviewed and analyzed is extensive test ordered test reviewed. Results analyzed and correlated clinically. Management discussed with hospitalist who accepts admission Risk of complication and a risk morbidity/mortality of patient management is high. Patient requires hospitalization for further evaluation and treatment. Vital stable. Time spent admit patient is approximately 20 minutes. Plan of care established for shared decision making. No social determinants of health present impede follow-up. Portions of this note were created with voice recognition technology. There may be grammatical, spelling, punctuation or sound alike errors Blood Culture(s) Obtained: Yes Antibiotics given: Yes Discussed with Dr.: Morel (Patient admitted by Dr. Philip at 9:40 PM) Counseled pt/family regarding: lab results, diagnosis, rad results - Departure Departure Disposition: Observation Clinical Impression: COPD exacerbation, Influenza A, Hyponatremia Condition: Stable Critical Care Time: No Referrals: ADALGISA BALDERRAMA [Primary Care Provider] - Follow up/PCP as directed Instructions: Chronic Obstructive Pulmonary Disease
[2023-07-19 19:32] LABS: INFLUENZA A POSITIVE (NEGATIVE)
[2023-07-19 20:09] LABS: ATYPICAL LYMPHS 7 %; Lymphocytes 37 % (24-44); Monocyte 1 % (0.0-12.0); Neutrophils 55 % (36.0-66.0); Total Cells Counted 100
[2023-07-19 20:10] LABS: Platelet Estimate NORMAL (NORMAL)
[2023-07-19] MEDS ORDERED: Zithromax 500 MG/ 250 ML NaCl Premix 500 MG/250 ML IVPB IV STA (21:42)
[2023-07-19] MEDS ORDERED: ROCEPHIN 2 Gm-D5w 50ML BAG** 2 G/50 ML IVPB IV STA (21:42)
[2023-07-19] MEDS ORDERED: ROCEPHIN 2 Gm-D5w 50ML BAG** 2 G/50 ML IVPB IV ONE (21:44)
[2023-07-19] MEDS ORDERED: Zithromax 500 MG/ 250 ML NaCl Premix 500 MG/250 ML IVPB IV ONE (22:46)
[2023-07-19] MEDS ORDERED: Zofran 4 MG/2 ML VIAL IV PRN (23:31)
[2023-07-19] MEDS ORDERED: HUMALOG SQ PRN (23:31)
[2023-07-19] MEDS ORDERED: FEVERALL 650 MG PR PRN (23:31)
--- NOTE | 2023-07-19 23:43 | PCM.HP ---
History of Present Illness - Chief Complaint Chief Complaint: COPD exacerbation Date: 07/19/23 History of Present Illness: is a 62 year old female with a known history of COPD (but who has not needed home oxygen) who presents to the hospital with approximately 1 week of symptoms including dyspnea, and chills. About 1 day prior to presentation, the patient expeirenced rib pain and nausea. She uses a rescue inhaler and nebulizers at home but her symptoms have progressively worsened. She does not express cough as a prominent symptom, and she denies fever. She also denies precordial anginal chest pain with exertion. - Review of Systems Constitutional: Chills Eyes: No Symptoms Ears, Nose, & Throat: No Symptoms Respiratory: Short Of Breath, Wheezing, Other (rib/chest wall pain) Cardiac: No Symptoms Abdominal/Gastrointestinal: Nausea Genitourinary Symptoms: No Symptoms Musculoskeletal: No Symptoms Skin: No Symptoms Neurological: No Symptoms Psychological: No Symptoms Endocrine: No Symptoms Hematologic/Lymphatic: No Symptoms Immunological/Allergic: No Symptoms All Other Systems: Reviewed and Negative Medications & Allergies Home Medications: Home Medication List Albuterol Sulfate [Proair Digihaler] 90 mcg IH DAILY 02/21/21 [History Confirmed 07/19/23] lisinopriL [Lisinopril] 20 mg PO DAILY 02/21/21 [History Confirmed 07/19/23] Fluoxetine HCl [Prozac] 40 mg PO DAILY 07/19/23 [History Confirmed 07/19/23] Metoprolol Succinate 100 mg [Toprol Xl 100 MG] 100 mg PO DAILY 07/19/23 [History Confirmed 07/19/23] Triamterene/Hydrochlorothiazid [Triamterene-Hctz 37.5-25 mg Tb] 1 each PO DAILY 07/19/23 [History Confirmed 07/19/23] Allergies/Adverse Reactions: Allergies Allergy/AdvReac Type Severity Reaction Status Date / Time hair dye Allergy Intermediate Rash Uncoded 07/19/23 22:38 - Past Medical History Past Medical History: Yes Neurological History: No Pertinent History ENT History: No Pertinent History Cardiac History: Hypertension Respiratory History: COPD Endocrine Medical History: No Pertinent History Musculoskelatal History: No Pertinent History GI Medical History: No Pertinent History History: No Pertinent History Pyscho-Social History: Attention Deficit Disorder, Depression Reproductive Disorders: No Pertinent History Comment: . - Female History Are you now?: No - Past Surgical History Past Surgical History: Yes Neuro Surgical History: No Pertinent History Cardiac History: No Pertinent History Respiratory Surgery: No Pertinent History GI Surgical History: No Pertinent History Genitourinary Surgical Hx: No Pertinent History Musculskeletal Surgical Hx: No Pertinent History Female Surgical History: Tubal Ligation Other Surgical History: . 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, normal mood/affect, nml cerebellar function Eye Exam: PERRL/EOMI, eyes nml inspection Ears, Nose, Throat Exam: normal ENT inspection Neck Exam: normal inspection, non-tender, supple, full range of motion Respiratory Exam: diminished breath sounds, other (poor air movement bilaterally) Cardiovascular Exam: regular rate/rhythm, normal heart sounds Gastrointestinal/Abdomen Exam: soft, normal bowel sounds Back Exam: normal range of motion Extremity Exam: normal inspection, normal range of motion Skin Exam: normal color Results - Labs Lab/Micro Results: Lab Results-Last 24 Hours 07/19/23 07/19/23 07/19/23 Range/Units 18:25 18:30 18:30 WBC 8.7 (4.0-10.5) x10^3/uL RBC 5.24 (4.1-5.4) x10^6/uL Hgb 14.2 (12.0-16.0) g/dL Hct 43.2 (35-47) % MCV 82.4 (78-100) fL MCH 27.1 (26-32) pg MCHC 32.9 (32-36) g/dL RDW 13.5 (11.5-14.0) % Plt Count 170 (150-450) x10^3/uL MPV 12.4 H (7.5-11.0) fL Segmented Neutrophils 55 (36.0-66.0) % Lymphocytes (Manual) 37 (24-44) % Monocytes (Manual) 1 (0.0-12.0) % Atypical Lymphocytes 7 % Platelet Estimate NORMAL (NORMAL) RBC Morphology NORMAL D-Dimer (0.0-0.50) mg/L Sodium 130 L (137-145) mmol/L Potassium 3.7 (3.5-5.1) mmol/L Chloride 94 L (98-107) mmol/L Carbon Dioxide 27 (22-30) mmol/L Anion Gap 12.3 (5-15) MEQ/L BUN 9 (7-17) mg/dL Creatinine 0.53 (0.52-1.04) mg/dL Estimated GFR 105.2 ML/MIN Glucose 102 (74-106) mg/dL Calcium 9.7 (8.4-10.2) mg/dL Total Bilirubin 0.50 (0.2-1.3) mg/dL AST 40 H (14-36) U/L ALT 20 (0-35) U/L Alkaline Phosphatase 70 (38-126) U/L Troponin I (0.000-0.034) ng/mL NT-Pro-B Natriuret Pep (<300) pg/mL Serum Total Protein 8.4 H (6.3-8.2) g/dL Albumin 4.4 (3.5-5.0) g/dL Influenza Type A Ag POSITIVE (NEGATIVE) Influenza Type B Ag NEGATIVE (NEGATIVE) RSV (PCR) NEGATIVE (NEGATIVE) SARS-CoV-2 (PCR) NEGATIVE (NEGATIVE) 07/19/23 07/19/23 07/19/23 Range/Units 18:30 18:30 18:30 WBC (4.0-10.5) x10^3/uL RBC (4.1-5.4) x10^6/uL Hgb (12.0-16.0) g/dL Hct (35-47) % MCV (78-100) fL MCH (26-32) pg MCHC (32-36) g/dL RDW (11.5-14.0) % Plt Count (150-450) x10^3/uL MPV (7.5-11.0) fL Segmented Neutrophils (36.0-66.0) % Lymphocytes (Manual) (24-44) % Monocytes (Manual) (0.0-12.0) % Atypical Lymphocytes % Platelet Estimate (NORMAL) RBC Morphology D-Dimer 0.52 H (0.0-0.50) mg/L Sodium (137-145) mmol/L Potassium (3.5-5.1) mmol/L Chloride (98-107) mmol/L Carbon Dioxide (22-30) mmol/L Anion Gap (5-15) MEQ/L BUN (7-17) mg/dL Creatinine (0.52-1.04) mg/dL Estimated GFR ML/MIN Glucose (74-106) mg/dL Calcium (8.4-10.2) mg/dL Total Bilirubin (0.2-1.3) mg/dL AST (14-36) U/L ALT (0-35) U/L Alkaline Phosphatase (38-126) U/L Troponin I < 0.012 (0.000-0.034) ng/mL NT-Pro-B Natriuret Pep 29.8 (<300) pg/mL Serum Total Protein (6.3-8.2) g/dL Albumin (3.5-5.0) g/dL Influenza Type A Ag (NEGATIVE) Influenza Type B Ag (NEGATIVE) RSV (PCR) (NEGATIVE) SARS-CoV-2 (PCR) (NEGATIVE) 07/19/23 Range/Units 21:50 WBC (4.0-10.5) x10^3/uL RBC (4.1-5.4) x10^6/uL Hgb (12.0-16.0) g/dL Hct (35-47) % MCV (78-100) fL MCH (26-32) pg MCHC (32-36) g/dL RDW (11.5-14.0) % Plt Count (150-450) x10^3/uL MPV (7.5-11.0) fL Segmented Neutrophils (36.0-66.0) % Lymphocytes (Manual) (24-44) % Monocytes (Manual) (0.0-12.0) % Atypical Lymphocytes % Platelet Estimate (NORMAL) RBC Morphology D-Dimer (0.0-0.50) mg/L Sodium (137-145) mmol/L Potassium (3.5-5.1) mmol/L Chloride (98-107) mmol/L Carbon Dioxide (22-30) mmol/L Anion Gap (5-15) MEQ/L BUN (7-17) mg/dL Creatinine (0.52-1.04) mg/dL Estimated GFR ML/MIN Glucose (74-106) mg/dL Calcium (8.4-10.2) mg/dL Total Bilirubin (0.2-1.3) mg/dL AST (14-36) U/L ALT (0-35) U/L Alkaline Phosphatase (38-126) U/L Troponin I < 0.012 (0.000-0.034) ng/mL NT-Pro-B Natriuret Pep (<300) pg/mL Serum Total Protein (6.3-8.2) g/dL Albumin (3.5-5.0) g/dL Influenza Type A Ag (NEGATIVE) Influenza Type B Ag (NEGATIVE) RSV (PCR) (NEGATIVE) SARS-CoV-2 (PCR) (NEGATIVE) - Radiology Impressions Radiology Exams & Impressions: Radiology Procedures Category Date Time Status CHEST WITH CONTRAST [CT] Stat Exams 07/19/23 19:27 Taken - Other Procedures and Tests Respiratory Therapy 07/19/23 18:27 Respiratory Therapy Assessment DAILY Assessment/Plan (1) COPD with acute bronchitis Current Visit: No Status: Acute Assessment & Plan: Nebs, steroids, empiric antibiotics. PT assessment for ambulatory O2 needs. Code(s): J44.0 - CHR OBSTRUCTIVE PULMON DISEASE WITH (ACUTE) LOWER RESP INFCT; J20.9 - ACUTE BRONCHITIS, UNSPECIFIED (2) Influenza A Current Visit: Yes Status: Acute Assessment & Plan: Chills began approximately a week ago. Not a candidate for Tamiflu initiation since outside the 48 hour symptom onset window. Isolation. Code(s): J10.1 - FLU DUE TO OTH IDENT INFLUENZA VIRUS W OTH RESP MANIFEST (3) Essential hypertension Current Visit: Yes Status: Acute Assessment & Plan: Continue current regimen and monitor BP. Code(s): I10 - ESSENTIAL (PRIMARY) HYPERTENSION (4) Hyponatremia Current Visit: Yes Status: Acute Assessment & Plan: Mild. Recheck BMP in AM. Code(s): E87.1 - HYPO-OSMOLALITY AND HYPONATREMIA Telemedicine Encounter - Telemedicine Encounter Telemedicine Encounter: The entirety of this encounter was performed via Telemedicine"
[2023-07-20] MEDS: DUONEB 0.5-3 MG/3 ml Neb IH SCH ×3 (00:11→12:55)
[2023-07-20] MEDS: solu-MEDROL 60 MG, Sterile H2O 10 ml 2 ML IV SCH ×6 (02:30→11:31)
[2023-07-20] MEDS ORDERED: solu-MEDROL ONE (02:35)
[2023-07-20] MEDS ORDERED: Sterile H2O 10 ml IJ ONE (02:35)
[2023-07-20 04:40] VITALS: TEMP 97.7
--- NOTE | 2023-07-20 05:15 | PCM.NOTE ---
Date and Time: 07/20/23511 Subjective Assessment: HPI: is a 62 year old female with a known history of COPD (but who has not needed home oxygen) who presents to the hospital with approximately 1 week of symptoms including dyspnea, and chills. About 1 day prior to presentation, the patient experienced rib pain and nausea. She uses a rescue inhaler and nebulizers at home but her symptoms have progressively worsened. She does not express cough as a prominent symptom, and she denies fever. She also denies precordial anginal chest pain with exertion. 07/20: OBJECTIVE DATA Vital Signs: Vital Signs - 24 hr Temp Pulse Resp BP BP Pulse Ox 07/20/23 04:00 97.7 F 76 14 123/69 93 L 07/20/23 00:14 81 18 94 L 07/20/23 00:00 97.9 F 81 18 116/67 94 L 07/19/23 23:23 94 L 07/19/23 22:09 97.9 F 78 20 116/67 92 L 07/19/23 21:51 95 07/19/23 21:33 76 19 107/79 94 L 07/19/23 20:00 120/83 07/19/23 19:30 75 20 112/85 95 07/19/23 19:01 79 14 110/73 95 07/19/23 18:50 95 07/19/23 18:27 82 18 95 Pain Assessment - Last Documented Pain Intensity 5 Intake and Output: Intake & Output 07/17/23 07/18/23 07/19/23 07/20/23 11:59 11:59 11:59 11:59 Intake Total 480 Balance 480 Weight 96.5 kg Lab Results: Lab Results-Last 24 Hours 07/19/23 07/19/23 07/19/23 Range/Units 18:25 18:30 18:30 WBC 8.7 (4.0-10.5) x10^3/uL RBC 5.24 (4.1-5.4) x10^6/uL Hgb 14.2 (12.0-16.0) g/dL Hct 43.2 (35-47) % MCV 82.4 (78-100) fL MCH 27.1 (26-32) pg MCHC 32.9 (32-36) g/dL RDW 13.5 (11.5-14.0) % Plt Count 170 (150-450) x10^3/uL MPV 12.4 H (7.5-11.0) fL Segmented Neutrophils 55 (36.0-66.0) % Lymphocytes (Manual) 37 (24-44) % Monocytes (Manual) 1 (0.0-12.0) % Atypical Lymphocytes 7 % Platelet Estimate NORMAL (NORMAL) RBC Morphology NORMAL D-Dimer (0.0-0.50) mg/L Sodium 130 L (137-145) mmol/L Potassium 3.7 (3.5-5.1) mmol/L Chloride 94 L (98-107) mmol/L Carbon Dioxide 27 (22-30) mmol/L Anion Gap 12.3 (5-15) MEQ/L BUN 9 (7-17) mg/dL Creatinine 0.53 (0.52-1.04) mg/dL Estimated GFR 105.2 ML/MIN Glucose 102 (74-106) mg/dL Calcium 9.7 (8.4-10.2) mg/dL Total Bilirubin 0.50 (0.2-1.3) mg/dL AST 40 H (14-36) U/L ALT 20 (0-35) U/L Alkaline Phosphatase 70 (38-126) U/L Troponin I (0.000-0.034) ng/mL NT-Pro-B Natriuret Pep (<300) pg/mL Serum Total Protein 8.4 H (6.3-8.2) g/dL Albumin 4.4 (3.5-5.0) g/dL Influenza Type A Ag POSITIVE (NEGATIVE) Influenza Type B Ag NEGATIVE (NEGATIVE) RSV (PCR) NEGATIVE (NEGATIVE) SARS-CoV-2 (PCR) NEGATIVE (NEGATIVE) 07/19/23 07/19/23 07/19/23 Range/Units 18:30 18:30 18:30 WBC (4.0-10.5) x10^3/uL RBC (4.1-5.4) x10^6/uL Hgb (12.0-16.0) g/dL Hct (35-47) % MCV (78-100) fL MCH (26-32) pg MCHC (32-36) g/dL RDW (11.5-14.0) % Plt Count (150-450) x10^3/uL MPV (7.5-11.0) fL Segmented Neutrophils (36.0-66.0) % Lymphocytes (Manual) (24-44) % Monocytes (Manual) (0.0-12.0) % Atypical Lymphocytes % Platelet Estimate (NORMAL) RBC Morphology D-Dimer 0.52 H (0.0-0.50) mg/L Sodium (137-145) mmol/L Potassium (3.5-5.1) mmol/L Chloride (98-107) mmol/L Carbon Dioxide (22-30) mmol/L Anion Gap (5-15) MEQ/L BUN (7-17) mg/dL Creatinine (0.52-1.04) mg/dL Estimated GFR ML/MIN Glucose (74-106) mg/dL Calcium (8.4-10.2) mg/dL Total Bilirubin (0.2-1.3) mg/dL AST (14-36) U/L ALT (0-35) U/L Alkaline Phosphatase (38-126) U/L Troponin I < 0.012 (0.000-0.034) ng/mL NT-Pro-B Natriuret Pep 29.8 (<300) pg/mL Serum Total Protein (6.3-8.2) g/dL Albumin (3.5-5.0) g/dL Influenza Type A Ag (NEGATIVE) Influenza Type B Ag (NEGATIVE) RSV (PCR) (NEGATIVE) SARS-CoV-2 (PCR) (NEGATIVE) 07/19/23 07/20/23 Range/Units 21:50 01:55 WBC (4.0-10.5) x10^3/uL RBC (4.1-5.4) x10^6/uL Hgb (12.0-16.0) g/dL Hct (35-47) % MCV (78-100) fL MCH (26-32) pg MCHC (32-36) g/dL RDW (11.5-14.0) % Plt Count (150-450) x10^3/uL MPV (7.5-11.0) fL Segmented Neutrophils (36.0-66.0) % Lymphocytes (Manual) (24-44) % Monocytes (Manual) (0.0-12.0) % Atypical Lymphocytes % Platelet Estimate (NORMAL) RBC Morphology D-Dimer (0.0-0.50) mg/L Sodium (137-145) mmol/L Potassium (3.5-5.1) mmol/L Chloride (98-107) mmol/L Carbon Dioxide (22-30) mmol/L Anion Gap (5-15) MEQ/L BUN (7-17) mg/dL Creatinine (0.52-1.04) mg/dL Estimated GFR ML/MIN Glucose (74-106) mg/dL Calcium (8.4-10.2) mg/dL Total Bilirubin (0.2-1.3) mg/dL AST (14-36) U/L ALT (0-35) U/L Alkaline Phosphatase (38-126) U/L Troponin I < 0.012 < 0.012 (0.000-0.034) ng/mL NT-Pro-B Natriuret Pep (<300) pg/mL Serum Total Protein (6.3-8.2) g/dL Albumin (3.5-5.0) g/dL Influenza Type A Ag (NEGATIVE) Influenza Type B Ag (NEGATIVE) RSV (PCR) (NEGATIVE) SARS-CoV-2 (PCR) (NEGATIVE) Radiology Exams: Radiology Procedures Category Date Time Status CHEST WITH CONTRAST [CT] Stat Exams 07/19/23 19:27 Taken Assessment/Plan (1) COPD exacerbation Current Visit: Yes Status: Acute Assessment & Plan: Nebs, steroids, empiric antibiotics. PT assessment for ambulatory O2 needs. Code(s): J44.0 - CHR OBSTRUCTIVE PULMON DISEASE WITH (ACUTE) LOWER RESP INFCT; J20.9 - ACUTE BRONCHITIS, UNSPECIFIED (2) Influenza A Current Visit: Yes Status: Acute Assessment & Plan: Chills began approximately a week ago. Not a candidate for Tamiflu initiation since outside the 48 hour symptom onset window. Isolation. Code(s): J10.1 - FLU DUE TO OTH IDENT INFLUENZA VIRUS W OTH RESP MANIFEST (3) Essential hypertension Current Visit: Yes Status: Acute Assessment & Plan: Continue current regimen and monitor BP. Code(s): I10 - ESSENTIAL (PRIMARY) HYPERTENSION (4) Hyponatremia Current Visit: Yes Status: Acute Assessment & Plan: Mild. Recheck BMP in AM. Code(s): E87.1 - HYPO-OSMOLALITY AND HYPONATREMIA Code(s): J44.1 - CHRONIC OBSTRUCTIVE PULMONARY DISEASE W (ACUTE) EXACERBATION (2) Essential hypertension Current Visit: Yes Status: Acute Code(s): I10 - ESSENTIAL (PRIMARY) HYPERTENSION (3) Hyponatremia Current Visit: Yes Status: Acute Code(s): E87.1 - HYPO-OSMOLALITY AND HYPONATREMIA (4) Influenza A Current Visit: Yes Status: Acute Code(s): J10.1 - FLU DUE TO OTH IDENT INFLUENZA VIRUS W OTH RESP MANIFEST
[2023-07-20 05:16] LABS: Hematocrit 40.5 % (35-47); Hemoglobin 13.3 g/dL (12.0-16.0); Mean Cell Volume 82.7 fL (78-100); Mean Corpuscular Hemoglobin 27.1 pg (26-32); Mean Corpuscular Hgb Concent. 32.8 g/dL (32-36); Mean Platelet Volume 12.9 fL (7.5-11.0); Platelet Count 154 x10^3/uL (150-450); Red Cell Distribution Width 13.9 % (11.5-14.0); White Blood Count 5.2 x10^3/uL (4.0-10.5)
[2023-07-20 05:33] LABS: ANION GAP 10.7 MEQ/L (5-15); Calcium 9.3 mg/dL (8.4-10.2); Creatinine 1 0.58 mg/dL (0.52-1.04); EST GLOMERULAR FILTRATION RATE 102.9 ML/MIN; Potassium 3.5 mmol/L (3.5-5.1)
[2023-07-20 05:54] LABS: ATYPICAL LYMPHS 4 %; Lymphocytes 14 % (24-44); Monocyte 1 % (0.0-12.0); Neutrophils 81 % (36.0-66.0); Total Cells Counted 100
[2023-07-20 05:55] LABS: ANISOCYTOSIS 1+; Hypochromia 1+; Platelet Estimate NORMAL (NORMAL)
--- NOTE | 2023-07-20 08:44 | XRAY ---
Indication: Short of breath. Elevated d-dimer. Multiple contiguous axial images obtained through the chest using 80 cc Isovue 370 contrast and PE protocol. Comparison: None Adequate opacification of the pulmonary arteries. No pulmonary embolus. Heart not enlarged. Aorta is minimally arteriosclerotic without aneurysm/dissection. No pathologic mediastinal/hilar lymphadenopathy. Lungs demonstrates mild pulmonary emphysema and minimal bibasilar subsegmental atelectasis/scarring. No suspicious pulmonary mass/nodule, infiltrate, or effusion. Bony thorax intact with mild degenerative changes throughout the spine. Limited upper abdomen demonstrates a few tiny gallbladder gravel/stones. Impression: 1. Negative pulmonary embolus. No acute cardiac pulmonary abnormalities. 2. Chronic findings including pulmonary emphysema, arteriosclerotic disease, and tiny gallbladder gravel/stones.
[2023-07-20] MEDS ORDERED: Zestril 20 MG PO SCH (10:00)
[2023-07-20] MEDS ORDERED: Protonix 40MG Tablet PO SCH (10:00)
[2023-07-20] MEDS ORDERED: Prozac 20 MG PO SCH (10:00)
[2023-07-20] MEDS ORDERED: ENOXAPARIN SODIUM SQ SCH (10:00)
[2023-07-20] MEDS ORDERED: Acidophilus TABLET PO SCH (10:00)
[2023-07-20] MEDS ORDERED: Maxzide-25MG Tablet PO SCH (10:00)
[2023-07-20 11:28] VITALS: BP 120/71
--- NOTE | 2023-07-20 11:59 | PCM.DS ---
Discharge Summary Date of Admission: 07/19/23 21:44 Date of Discharge: 07/20/23 Admitting Physician: WYATT PICKERING MD Primary Care Provider: ADALGISA BALDERRAMA Allergies Allergies hair dye Allergy (Intermediate, Uncoded 07/19/23 22:38) Rash Hospital Summary - Hospital Course Hospital Course: is a 62 year old female with a known history of COPD (but who has not needed home oxygen) who presents to the hospital with approximately 1 week of symptoms including dyspnea, and chills. About 1 day prior to presentation, the patient experienced rib pain and nausea. She uses a rescue inhaler and nebulizers at home but her symptoms have progressively worsened. She does not express cough as a prominent symptom, and she denies fever. She also denies precordial anginal chest pain with exertion. CT of the chest negative pulmonary embolus. No acute cardiac pulmonary abnormalities with chronic findings including pulmonary emphysema, arteriosclerotic disease,and tiny gallbladder gravel/stones. She admitted for positive influenza A and COPD exacerbation. No overnight events noted. Patient remains on RA. Lung sounds are coarse on auscult ation. Patient states abdominal/rib pain and nausea have resolved. She is requesting discharge today. She states she has bronchodilators/nebulizer machine at home. Will discharge today with zithromax and medrol dose pack. She is requesting a pulmonology referral which we will set up for her. Advised close follow up. Discharge Note New Diagnosis: Flu A/COPD exacerbation New Medications:zpack/ medrol dose pack Follow Up: PCP/Pulm Latest Assessment & Plan (1) COPD with acute bronchitis Current Visit: No Status: Acute Assessment & Plan: Nebs, steroids, empiric antibiotics. PT assessment for ambulatory O2 needs. Code(s): J44.0 - CHR OBSTRUCTIVE PULMON DISEASE WITH (ACUTE) LOWER RESP INFCT; J20.9 - ACUTE BRONCHITIS, UNSPECIFIED (2) Influenza A Current Visit: Yes Status: Acute Assessment & Plan: Chills began approximately a week ago. Not a candidate for Tamiflu initiation since outside the 48 hour symptom onset window. Isolation. Code(s): J10.1 - FLU DUE TO OTH IDENT INFLUENZA VIRUS W OTH RESP MANIFEST (3) Essential hypertension Current Visit: Yes Status: Acute Assessment & Plan: Continue current regimen and monitor BP. Code(s): I10 - ESSENTIAL (PRIMARY) HYPERTENSION (4) Hyponatremia Current Visit: Yes Status: Acute Assessment & Plan: Mild. Recheck BMP in AM. Code(s): E87.1 - HYPO-OSMOLALITY AND HYPONATREMIA I spent 35 minutes [id number] with the patient on the day of discharge performing discharge exam, discussing hospital stay and discharge instructions with patient and caregivers, preparation of discharge records, prescriptions & referral forms and addressing any questions/concerns the patient had as documented above. - Vitals & Intake/Output Vital Signs: Vital Signs Temperature 97.7 F 07/20/23 08:00 Pulse Rate 76 07/20/23 08:00 Respiratory Rate 16 07/20/23 08:00 Blood Pressure 120/71 07/20/23 08:00 O2 Sat by Pulse Oximetry 91 L 07/20/23 08:00 Intake & Output: Intake & Output 07/17/23 07/18/23 07/19/23 07/20/23 11:59 11:59 11:59 11:59 Intake Total 720 Balance 720 Weight 96.5 kg - Lab Result Diagrams: 07/20/23 05:05 07/20/23 05:05 Lab Results-Last 24 Hrs: Lab Results-Last 24 Hours 07/19/23 07/19/23 07/19/23 Range/Units 18:25 18:30 18:30 WBC 8.7 (4.0-10.5) x10^3/uL RBC 5.24 (4.1-5.4) x10^6/uL Hgb 14.2 (12.0-16.0) g/dL Hct 43.2 (35-47) % MCV 82.4 (78-100) fL MCH 27.1 (26-32) pg MCHC 32.9 (32-36) g/dL RDW 13.5 (11.5-14.0) % Plt Count 170 (150-450) x10^3/uL MPV 12.4 H (7.5-11.0) fL Segmented Neutrophils 55 (36.0-66.0) % Lymphocytes (Manual) 37 (24-44) % Monocytes (Manual) 1 (0.0-12.0) % Atypical Lymphocytes 7 % Hypochromia Platelet Estimate NORMAL (NORMAL) RBC Morphology NORMAL Anisocytosis D-Dimer (0.0-0.50) mg/L Sodium 130 L (137-145) mmol/L Potassium 3.7 (3.5-5.1) mmol/L Chloride 94 L (98-107) mmol/L Carbon Dioxide 27 (22-30) mmol/L Anion Gap 12.3 (5-15) MEQ/L BUN 9 (7-17) mg/dL Creatinine 0.53 (0.52-1.04) mg/dL Estimated GFR 105.2 ML/MIN Glucose 102 (74-106) mg/dL Calcium 9.7 (8.4-10.2) mg/dL Total Bilirubin 0.50 (0.2-1.3) mg/dL AST 40 H (14-36) U/L ALT 20 (0-35) U/L Alkaline Phosphatase 70 (38-126) U/L Troponin I (0.000-0.034) ng/mL NT-Pro-B Natriuret Pep (<300) pg/mL Serum Total Protein 8.4 H (6.3-8.2) g/dL Albumin 4.4 (3.5-5.0) g/dL Influenza Type A Ag POSITIVE (NEGATIVE) Influenza Type B Ag NEGATIVE (NEGATIVE) RSV (PCR) NEGATIVE (NEGATIVE) SARS-CoV-2 (PCR) NEGATIVE (NEGATIVE) 07/19/23 07/19/23 07/19/23 Range/Units 18:30 18:30 18:30 WBC (4.0-10.5) x10^3/uL RBC (4.1-5.4) x10^6/uL Hgb (12.0-16.0) g/dL Hct (35-47) % MCV (78-100) fL MCH (26-32) pg MCHC (32-36) g/dL RDW (11.5-14.0) % Plt Count (150-450) x10^3/uL MPV (7.5-11.0) fL Segmented Neutrophils (36.0-66.0) % Lymphocytes (Manual) (24-44) % Monocytes (Manual) (0.0-12.0) % Atypical Lymphocytes % Hypochromia Platelet Estimate (NORMAL) RBC Morphology Anisocytosis D-Dimer 0.52 H (0.0-0.50) mg/L Sodium (137-145) mmol/L Potassium (3.5-5.1) mmol/L Chloride (98-107) mmol/L Carbon Dioxide (22-30) mmol/L Anion Gap (5-15) MEQ/L BUN (7-17) mg/dL Creatinine (0.52-1.04) mg/dL Estimated GFR ML/MIN Glucose (74-106) mg/dL Calcium (8.4-10.2) mg/dL Total Bilirubin (0.2-1.3) mg/dL AST (14-36) U/L ALT (0-35) U/L Alkaline Phosphatase (38-126) U/L Troponin I < 0.012 (0.000-0.034) ng/mL NT-Pro-B Natriuret Pep 29.8 (<300) pg/mL Serum Total Protein (6.3-8.2) g/dL Albumin (3.5-5.0) g/dL Influenza Type A Ag (NEGATIVE) Influenza Type B Ag (NEGATIVE) RSV (PCR) (NEGATIVE) SARS-CoV-2 (PCR) (NEGATIVE) 07/19/23 07/20/23 07/20/23 Range/Units 21:50 01:55 05:05 WBC 5.2 (4.0-10.5) x10^3/uL RBC 4.90 (4.1-5.4) x10^6/uL Hgb 13.3 (12.0-16.0) g/dL Hct 40.5 (35-47) % MCV 82.7 (78-100) fL MCH 27.1 (26-32) pg MCHC 32.8 (32-36) g/dL RDW 13.9 (11.5-14.0) % Plt Count 154 (150-450) x10^3/uL MPV 12.9 H (7.5-11.0) fL Segmented Neutrophils 81 H (36.0-66.0) % Lymphocytes (Manual) 14 L (24-44) % Monocytes (Manual) 1 (0.0-12.0) % Atypical Lymphocytes 4 % Hypochromia 1+ Platelet Estimate NORMAL (NORMAL) RBC Morphology ABNORMAL Anisocytosis 1+ D-Dimer (0.0-0.50) mg/L Sodium (137-145) mmol/L Potassium (3.5-5.1) mmol/L Chloride (98-107) mmol/L Carbon Dioxide (22-30) mmol/L Anion Gap (5-15) MEQ/L BUN (7-17) mg/dL Creatinine (0.52-1.04) mg/dL Estimated GFR ML/MIN Glucose (74-106) mg/dL Calcium (8.4-10.2) mg/dL Total Bilirubin (0.2-1.3) mg/dL AST (14-36) U/L ALT (0-35) U/L Alkaline Phosphatase (38-126) U/L Troponin I < 0.012 < 0.012 (0.000-0.034) ng/mL NT-Pro-B Natriuret Pep (<300) pg/mL Serum Total Protein (6.3-8.2) g/dL Albumin (3.5-5.0) g/dL Influenza Type A Ag (NEGATIVE) Influenza Type B Ag (NEGATIVE) RSV (PCR) (NEGATIVE) SARS-CoV-2 (PCR) (NEGATIVE) 07/20/23 Range/Units 05:05 WBC (4.0-10.5) x10^3/uL RBC (4.1-5.4) x10^6/uL Hgb (12.0-16.0) g/dL Hct (35-47) % MCV (78-100) fL MCH (26-32) pg MCHC (32-36) g/dL RDW (11.5-14.0) % Plt Count (150-450) x10^3/uL MPV (7.5-11.0) fL Segmented Neutrophils (36.0-66.0) % Lymphocytes (Manual) (24-44) % Monocytes (Manual) (0.0-12.0) % Atypical Lymphocytes % Hypochromia Platelet Estimate (NORMAL) RBC Morphology Anisocytosis D-Dimer (0.0-0.50) mg/L Sodium 130 L (137-145) mmol/L Potassium 3.5 (3.5-5.1) mmol/L Chloride 96 L (98-107) mmol/L Carbon Dioxide 27 (22-30) mmol/L Anion Gap 10.7 (5-15) MEQ/L BUN 9 (7-17) mg/dL Creatinine 0.58 (0.52-1.04) mg/dL Estimated GFR 102.9 ML/MIN Glucose 171 H (74-106) mg/dL Calcium 9.3 (8.4-10.2) mg/dL Total Bilirubin (0.2-1.3) mg/dL AST (14-36) U/L ALT (0-35) U/L Alkaline Phosphatase (38-126) U/L Troponin I (0.000-0.034) ng/mL NT-Pro-B Natriuret Pep (<300) pg/mL Serum Total Protein (6.3-8.2) g/dL Albumin (3.5-5.0) g/dL Influenza Type A Ag (NEGATIVE) Influenza Type B Ag (NEGATIVE) RSV (PCR) (NEGATIVE) SARS-CoV-2 (PCR) (NEGATIVE) - Radiology Exams Ordered Rad Exams-Entire Visit: Radiology Procedures Category Date Time Status CHEST WITH CONTRAST [CT] Stat Exams 07/19/23 19:27 Completed - Procedures and Test Procedures and Tests throughout Hospitalization: Therapy Orders & Screens 07/19/23 18:27 Respiratory Therapy Assessment DAILY Comment: 07/19/23 22:26 Smoking Cessation Education ONCE Comment: Diagnosis: COPD exacerbation Smoking Status: Current every day smoker How long have you smoked: 35 Do you dip or chew tobacco: No 07/19/23 23:31 PT Eval & Treat (MD Order) ONCE Reason for Eval:: COPD exacerbation; assess ambulatory oxygen needs Diagnosis: COPD exacerbation 07/20/23 08:28 RT 6 Minute Walk ROUTINE Comment: Diagnosis: COPD exacerbation Discharge Exam General Appearance: no apparent distress Neurologic Exam: alert, oriented x 3, cooperative Eye Exam: PERRL Ears, Nose, Throat Exam: normal ENT inspection Neck Exam: normal inspection Respiratory Exam: crackles/rales Cardiovascular Exam: regular rate/rhythm, normal heart sounds Gastrointestinal/Abdomen Exam: soft, normal bowel sounds Pelvic Exam: deferred Rectal Exam: deferred Back Exam: normal inspection Extremity Exam: normal inspection Final Diagnosis/Problem List - Final Discharge Diagnosis/Problem (1) Influenza A Current Visit: Yes Status: Acute Code(s): J10.1 - FLU DUE TO OTH IDENT INFLUENZA VIRUS W OTH RESP MANIFEST (2) COPD exacerbation Current Visit: Yes Status: Acute Code(s): J44.1 - CHRONIC OBSTRUCTIVE PULMON DIANNE DISEASE W (ACUTE) EXACERBATION (3) Essential hypertension Current Visit: Yes Status: Acute Code(s): I10 - ESSENTIAL (PRIMARY) HYPERTENSION (4) Hyponatremia Current Visit: Yes Status: Acute Code(s): E87.1 - HYPO-OSMOLALITY AND HYPONATREMIA - Discharge Disposition: Home, Self-Care Condition: Stable Prescriptions: New Azithromycin [Azithromycin 250 mg Pack] 250 mg PO UD 5 Days #6 tablet Methylprednisolone Packet [Medrol Dosepack] 4 mg PO UD 6 Days #30 packet Continue lisinopriL [Lisinopril] 20 mg PO DAILY Albuterol Sulfate [Proair Digihaler] 90 mcg IH DAILY Fluoxetine HCl [Prozac] 40 mg PO DAILY Triamterene/Hydrochlorothiazid [Triamterene-Hctz 37.5-25 mg Tb] 1 each PO DAILY Metoprolol Succinate 100 mg [Toprol Xl 100 MG] 100 mg PO DAILY Follow up with: ADALGISA BALDERRAMA [Primary Care Provider] - 07/28/23 9:30 am 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
[2023-07-20 13:05] VITALS: PULSE 102; RESP 20; O2SAT 99
[2023-07-20] MEDS ORDERED: ROCEPHIN 2 Gm-D5w 50ML BAG** 2 G/50 ML IVPB IV SCH (22:00)
[2023-07-20] MEDS ORDERED: Zithromax 500 MG/ 250 ML NaCl Premix 500 MG/250 ML IVPB IV SCH (22:00)
== END 2023-07-20 13:20 | disposition home or self-care (01) ==
LOC: ED 18:01 → MED SURG 21:44
PROVIDERS: ADMIT Internal Medicine; ATTEND Internal Medicine
DX: J44.0 Chronic obstructive pulmonary disease with (acute) lower respiratory infection (principal); J20.9 Acute bronchitis, unspecified; J10.1 Influenza due to other identified influenza virus with other respiratory manifestations; I10 Essential (primary) hypertension; F17.200 Nicotine dependence, unspecified, uncomplicated; E87.1 Hypo-osmolality and hyponatremia; Z79.899 Other long term (current) drug therapy; Z20.828 Contact with and (suspected) exposure to other viral communicable diseases
CPT/HCPCS: 0241U; 36000; 36415; 71260; 80048; 80053; 83880; 84484; 85025; 85379; 87040; 93005; 93041; 94640; 94760; 94762; 96374; 99285; Q3014; 93268; J0456; J0696; J1650; J2930; A9270-GY; G0378

== ENCOUNTER 2024-08-26 10:55 | Emergency (ER) | payer OTHER ==
--- NOTE | 2024-08-26 11:01 | ERPHSYRPT ---
- History of Present Illness Time Seen by Provider: 08/26/24 11:00 Source: patient Exam Limitations: no limitations Physician History: This is an obese 63-year-old patient of Dr. Garza who arrives by private vehicle with complaint of right lower extremity numbness that started yesterday and slightly improved but this morning (approximately 7 to 8 hours ago, patient states that she just was not thinking straight and cannot find her words. Patient denies head injury. Patient denies fever. Patient denies chest pain. She has no shortness of breath. Patient denies headache. Patient is a daily smoker of tobacco cigarettes. Patient has a history of hypertension, depression, COPD and ADD. Her NIH score is 2. Patient arrived to the emergency department and she went directly to the CT scanner for a stat head CT Timing/Duration: yesterday Severity: mild Character of Deficits: altered sensation (Right lower extremity but improved), RLE Deficits: no difficulties Baseline/Normal Cognition: alert oriented x 3 Current Cognition: alert oriented x 3 Baseline Gait: walks w/o assistance Associated Symptoms: numbness/tingling in legs/feet (Right lower extremity y esterday), other (Trouble finding words), No vision changes, No chest pain, No headache Allergies/Adverse Reactions: hair dye Allergy (Intermediate, Uncoded 08/26/24 11:00) Rash Home Medications: Albuterol Sulfate [Proair Digihaler] 90 mcg IH DAILY 02/21/21 [History] lisinopriL [Lisinopril] 20 mg PO DAILY 02/21/21 [History] Fluoxetine HCl [Prozac] 40 mg PO DAILY 07/19/23 [History] Metoprolol Succinate 100 mg [Toprol Xl 100 MG] 100 mg PO DAILY 07/19/23 [History] Triamterene/Hydrochlorothiazid [Triamterene-Hctz 37.5-25 mg Tb] 1 each PO DAILY 07/19/23 [History] Hx Tetanus, Diphtheria Vaccination/Date Given: Yes Hx Influenza Vaccination/Date Given: No Hx Pneumococcal Vaccination/Date Given: No Travel Risk - International Travel Have you traveled outside of the country in past 3 weeks: No - Emerging Infectious Disease Are you exhibiting symptoms associated with any current EIDs: No - Review of Systems Constitutional: No Symptoms Eyes: No Symptoms Ears, Nose, & Throat: No Symptoms Respiratory: No Symptoms Cardiac: No Symptoms Abdominal/Gastrointestinal: No Symptoms Genitourinary Symptoms: No Symptoms Musculoskeletal: No Symptoms Neurological: Parasthesia (Lower extremity yesterday), Other (Today she seems to have difficulty finding the correct words to say) Psychological: No Symptoms Endocrine: No Symptoms Hematologic/Lymphatic: No Symptoms Immunological/Allergic: No Symptoms All Other Systems: Reviewed and Negative - Past Medical History Pertinent Past Medical History: Yes Neurological History: No Pertinent History ENT History: No Pertinent History Cardiac History: Hypertension Respiratory History: COPD Endocrine Medical History: No Pertinent History Musculoskeletal History: No Pertinent History GI Medical History: No Pertinent History History: No Pertinent History Psycho-Social History: Attention Deficit Disorder, Depression Female Reproductive Disorders: No Pertinent History Other Medical History: . - Past Surgical History Past Surgical History: Yes Neuro Surgical History: No Pertinent History Cardiac: No Pertinent History Respiratory: No Pertinent History Gastrointestinal: No Pertinent History Genitourinary: No Pertinent History Musculoskeletal: No Pertinent History Female Surgical History: Tubal Ligation Other Surgical History: . - Social History Smoking Status: Current every day smoker How long have you smoked: 35 Exposure to second hand smoke: Yes Drug Use: marijuana Patient Lives Alone: Yes - Social Determinants of Health Will the patient participate in the screening: Declined to provide - Nursing Vital Signs Nursing Vital Signs: Initial Vital Signs O2 Sat by Pulse Oximetry 96 08/26/24 11:07 Pain Scale Pain Intensity 0 - [place] Coma Scale Best Eye Response ([place]): (1) no response Best Verbal Response ([place]): (5) oriented Best Motor Response ([place]): (6) obeys commands [place] Total: 12 - Physical Exam General Appearance: no apparent distress, alert, anxiety, obese Eye Exam: bilateral eye: normal inspection, PERRL, EOMI Ears, Nose, Throat Exam: normal ENT inspection, moist mucous membranes Neck Exam: normal inspection, non-tender, supple, full range of motion Respiratory: normal breath sounds, lungs clear, airway intact, No chest tenderness, No respiratory distress Cardiovascular: regular rate/rhythm, normal heart sounds, normal peripheral pulses Gastrointestinal: soft, normal bowel sounds, No tenderness Rectal Exam: not done Back Exam: normal inspection, normal range of motion, No CVA tenderness, No vertebral tenderness Extremity Exam: normal inspection, normal range of motion, pelvis stable Mental Status: alert, 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 QTc is 465.) Ordered Tests: Active Orders 24 hr Category Date Time Status AMA [Release AMA] OM.NOW Care 08/26/24 15:27 Completed Wellness Coordinator STAT Care 08/26/24 11:11 Completed EKG-ER Only STAT Care 08/26/24 11:11 Completed IV Insertion STAT Care 08/26/24 11:11 Completed NPO (ED) STAT Care 08/26/24 11:11 Completed Pulse Oximetry (ED) STAT Care 08/26/24 11:11 Completed Tele-Health Consult ROUTINE Cons 08/26/24 14:59 Completed HEAD WITHOUT CONTRAST [CT] Stat Exams 08/26/24 10:58 Completed MRI BRAIN W & W/O CONTRAST [MRI] Stat Exams 08/26/24 11:48 Completed CBC W DIFF Stat Lab 08/26/24 11:25 Completed CMP Stat Lab 08/26/24 11:25 Completed PROTIME WITH INR Stat Lab 08/26/24 11:25 Completed TROPONIN Q4H Lab 08/26/24 11:25 Completed UA W/RFX UR CULTURE Stat Lab 08/26/24 12:30 Completed Medication Summary Discontinued Medications Generic Name Dose Route Start Last Admin Trade Name Rajeevq PRN Reason Stop Dose Admin Aspirin 324 mg 08/26/24 15:12 Aspirin 81 Mg Tab.Chew PO 08/26/24 15:13 STAT ONE Lab/Rad Data: Laboratory Result Diagrams 08/26/24 11:25 08/26/24 11:25 Laboratory Results 08/26/24 08/26/24 08/26/24 Range/Units 12:30 11:25 11:25 WBC (3.98-10.04) x10^3/uL RBC (3.93-5.22) x10^6/uL Hgb (11.2-15.7) g/dL Hct (34.1-44.9) % MCV (79.4-94.8) fL MCH (25.6-32.2) pg MCHC (32.2-35.5) g/dL RDW (11.7-14.4) % Plt Count (182-369) x10^3/uL MPV (9.4-12.3) fL Gran % (34.0-71.1) % Immature Gran % (Auto) (0.001-0.429) % Nucleat RBC Rel Count (0.00-0.2) % Eos # (Auto) (0.04-0.36) x10^3/uL Immature Gran # (Auto) (0.001-0.031) x10^3u/L Absolute Lymphs (auto) (1.18-3.74) x10^3/uL Absolute Monos (auto) (0.24-0.86) x10^3/uL Absolute Nucleated RBC (0.00-0.012) x10^3u/L Lymphocytes % (19.3-51.7) % Monocytes % (4.7-12.5) % Eosinophils % (0.7-5.8) % Basophils % (0.1-1.2) % Absolute Granulocytes (1.56-6.13) x10^3/uL Basophils # (0.01-0.08) x10^3/uL PT 11.0 (9.4-12.5) SECONDS INR 1.01 (0.8-3.0) Sodium (135-145) mmol/L Potassium (3.5-5.1) mmol/L Chloride (98-107) mmol/L Carbon Dioxide (22-30) mmol/L Anion Gap (5-15) MEQ/L BUN (7-17) mg/dL Creatinine (0.52-1.04) mg/dL Estimated GFR ML/MIN Glucose (74-106) mg/dL Calcium (8.4-10.2) mg/dL Total Bilirubin (0.2-1.3) mg/dL AST (14-36) U/L ALT (0-35) U/L Alkaline Phosphatase (38-126) U/L Troponin I < 0.012 (0.000-0.033) ng/mL Serum Total Protein (6.3-8.2) g/dL Albumin (3.5-5.0) g/dL Urine Color Yellow (Yellow) Urine Appearance Clear (Clear) Urine pH 6.5 (4.6-8.0) Ur Specific [place] 1.010 (1.005-1.030) Urine Protein Negative (Negative) Urine Glucose (UA) Negative (Negative) mg/dL Urine Ketones Negative (Negative) Urine Blood Negative (Negative) Urine Nitrite Negative (Negative) Urine Bilirubin Negative (Negative) Urine Urobilinogen 1.0 A (0.2) mg/dL Ur Leukocyte Esterase Trace A (Negative) U Hyaline Cast (Auto) NONE SEEN (0-2) /LPF Urine Microscopic RBC 0-2 (0-5) /HPF Urine Microscopic WBC 3-5 (0-5) /HPF Ur Epithelial Cells Rare (None Seen) /HPF Urine Bacteria None Seen (None Seen) /HPF Urine Culture Reflexed NO (NO) 08/26/24 08/26/24 Range/Units 11:25 11:25 WBC 10.1 H (3.98-10.04) x10^3/uL RBC 5.33 H (3.93-5.22) x10^6/uL Hgb 14.1 (11.2-15.7) g/dL Hct 43.2 (34.1-44.9) % MCV 81.1 (79.4-94.8) fL MCH 26.5 (25.6-32.2) pg MCHC 32.6 (32.2-35.5) g/dL RDW 14.0 (11.7-14.4) % Plt Count 264 (182-369) x10^3/uL MPV 12.1 (9.4-12.3) fL Gran % 56.4 (34.0-71.1) % Immature Gran % (Auto) 0.7 H (0.001-0.429) % Nucleat RBC Rel Count 0.0 (0.00-0.2) % Eos # (Auto) 0.07 (0.04-0.36) x10^3/uL Immature Gran # (Auto) 0.07 H (0.001-0.031) x10^3u/L Absolute Lymphs (auto) 3.43 (1.18-3.74) x10^3/uL Absolute Monos (auto) 0.80 (0.24-0.86) x10^3/uL Absolute Nucleated RBC 0.00 (0.00-0.012) x10^3u/L Lymphocytes % 33.9 (19.3-51.7) % Monocytes % 7.9 (4.7-12.5) % Eosinophils % 0.7 (0.7-5.8) % Basophils % 0.4 (0.1-1.2) % Absolute Granulocytes 5.72 (1.56-6.13) x10^3/uL Basophils # 0.04 (0.01-0.08) x10^3/uL PT (9.4-12.5) SECONDS INR (0.8-3.0) Sodium 135 (135-145) mmol/L Potassium 3.7 (3.5-5.1) mmol/L Chloride 99 (98-107) mmol/L Carbon Dioxide 24 (22-30) mmol/L Anion Gap 16.0 H (5-15) MEQ/L BUN 15 (7-17) mg/dL Creatinine 0.88 (0.52-1.04) mg/dL Estimated GFR 74.3 ML/MIN Glucose 121 H (74-106) mg/dL Calcium 9.5 (8.4-10.2) mg/dL Total Bilirubin 0.60 (0.2-1.3) mg/dL AST 34 (14-36) U/L ALT 21 (0-35) U/L Alkaline Phosphatase 72 (38-126) U/L Troponin I (0.000-0.033) ng/mL Serum Total Protein 8.1 (6.3-8.2) g/dL Albumin 4.6 (3.5-5.0) g/dL Urine Color (Yellow) Urine Appearance (Clear) Urine pH (4.6-8.0) Ur Specific [place] (1.005-1.030) Urine Protein (Negative) Urine Glucose (UA) (Negative) mg/dL Urine Ketones (Negative) Urine Blood (Negative) Urine Nitrite (Negative) Urine Bilirubin (Negative) Urine Urobilinogen (0.2) mg/dL Ur Leukocyte Esterase (Negative) U Hyaline Cast (Auto) (0-2) /LPF Urine Microscopic RBC (0-5) /HPF Urine Microscopic WBC (0-5) /HPF Ur Epithelial Cells (None Seen) /HPF Urine Bacteria (None Seen) /HPF Urine Culture Reflexed (NO) - Progress Progress: improved Progress Note: 08/26/24 11:25 My medical decision making and the assignment of at least moderate complexity is based on review of the patient's past medical history, review of the patient's medication list, reviewed patient drug allergy list, history present illness and physical findings on examination. The workup in this patient includes plac ement of intravenous line, stat CT scan of the head, twelve-lead EKG, troponin level, CBC, CMP, urinalysis, magnesium level. Ultimately, we will secure a teleneuro consultation. Differential diagnosis includes but is not limited to acute intracranial abnormality, urinary tract infection, anxiety about health, dehydration, electrolyte abnormalities 08/26/24 11:[address] scan of the head without contrast was interpreted by the radiologist and I reviewed the impression. The impression states atrophy and degenerative micro ischemia within normal limits. Remote lacunar infarct right basal ganglia. Small focus of hypoattenuation left periventricular white matter/basal ganglia favoring ischemia of uncertain chronicity. MRI of brain recommended 08/26/24 14:47 The MRI of the brain with and without contrast was interpreted by the radiologist. The MRI findings of enhancement favoring acute ischemia left periventricular white matter/basal ganglia corresponds to the CT scan of the brain abnormality. There is no hemorrhage or mass effect. 08/26/24 15:18 I interpreted the patient's laboratory data results. Based on the laboratory data results are no acute, emergent medical issue. I reviewed the results of the CAT scan of the brain, MRI of the brain and the discussion I had with the teleneurologist Dr. Walker. He wants the patient to have Plavix and 324 mg of baby aspirin daily as well as 40 mg of atorvastatin daily. He recommends admitting the patient for echocardiogram as well as CT angiogram of the neck. Surprisingly, however, the patient wants to leave AGAINST MEDICAL ADVICE. She is awake she is alert she is oriented she understands there is a risk of worsening symptoms and even . She states that she needs to go to the food bank and she needs to take care of her animals. She stated that she would be back sometime tonight. She will sign the AGAINST MEDICAL ADVICE form. Counseled pt/family regarding: lab results, diagnosis, need for follow-up, rad results Medical Desision Making - Discussion of managment Care discussed with:: specialist (Teleneurologist Dr. Walker) - Diagnostic Testing Diagnostic test were ordered, analyzed, and reviewed by me: Yes Radiological Interpretation: Reviewed by me, Teleradiologist Report - Risk of complications The pt has a high risk of morbidity or mortality based on: Decision regarding hospitilization or escalation of hosp level of care - Departure Departure Disposition: AMA Clinical Impression: Acute cerebrovascular accident (CVA) Condition: Stable Critical Care Time: Yes Critical Care Time(excluding separately billable procedures): Critical 30-74 mins (50) Referrals: ADALGISA GARZA [Primary Care Provider] - Follow up/PCP as directed Additional Instructions: You need to return to an emergency department for admission and further workup. You have signed AGAINST MEDICAL ADVICE form. Continue your medications as prescribed if you choose not to return to the emergency department.
[2024-08-26 11:27] LABS: Absolute Neutrophil Ct (ANC) 5.72 x10^3/uL (1.56-6.13); BASOPHIL % 0.4 % (0.1-1.2); Basophil (Absolute #) 0.04 x10^3/uL (0.01-0.08); Eosinophil % 0.7 % (0.7-5.8); Eosinophil (Absolute #) 0.07 x10^3/uL (0.04-0.36); Hematocrit 43.2 % (34.1-44.9); Hemoglobin 14.1 g/dL (11.2-15.7); IMMATURE GRAN # 0.07 x10^3u/L (0.001-0.031); IMMATURE GRAN % 0.7 % (0.001-0.429); Lymphocyte (Absolute #) 3.43 x10^3/uL (1.18-3.74); Lymphocytes % 33.9 % (19.3-51.7); Mean Cell Volume 81.1 fL (79.4-94.8); Mean Corpuscular Hemoglobin 26.5 pg (25.6-32.2); Mean Corpuscular Hgb Concent. 32.6 g/dL (32.2-35.5); Mean Platelet Volume 12.1 fL (9.4-12.3); Monocytes % 7.9 % (4.7-12.5); Neutrophil % 56.4 % (34.0-71.1); Platelet Count 264 x10^3/uL (182-369); Red Blood Count 5.33 x10^6/uL (3.93-5.22); White Blood Count 10.1 x10^3/uL (3.98-10.04)
--- NOTE | 2024-08-26 11:39 | XRAY ---
Indication: Numbness. Multiple contiguous axial images obtained of the head without contrast. Comparison: None Age-appropriate global atrophy, minimal periventricular micro-ischemia, and remote lacunar infarct right basal ganglia. Left ventricular white matter demonstrates elliptical hypoattenuation measuring at least 2.4 x 1.2 cm in greatest axial dimension favoring ischemia of uncertain chronicity. This extends into left basal ganglia No acute intracranial hemorrhage, abnormal extra-axial fluid collection, or mass effect. Fourth ventricle is midline without hydrocephalus. Bony calvarium intact. Visualized paranasal sinuses and mastoid air cells are clear. Impression: 1. Atrophy and degenerative micro-ischemia within normal limits. Remote lacunar infarct right basal ganglia. 2. Small focus of hypoattenuation left periventricular white matter/basal ganglia favoring ischemia of uncertain chronicity. MRI may yield further information. 3. No acute intracranial hemorrhage or mass effect.
[2024-08-26 12:03] LABS: INR 1.01 (0.8-3.0)
[2024-08-26 12:10] LABS: ALBUMIN 4.6 g/dL (3.5-5.0); BILIRUBIN,TOTAL 0.6 mg/dL (0.2-1.3); Calcium 9.5 mg/dL (8.4-10.2); Creatinine 1 0.88 mg/dL (0.52-1.04); EST GLOMERULAR FILTRATION RATE 74.3 ML/MIN; Potassium 3.7 mmol/L (3.5-5.1); Total Protein 8.1 g/dL (6.3-8.2)
[2024-08-26 12:43] LABS: Appearance Clear (Clear); Bacteria None Seen /HPF (None Seen); Bilirubin Negative (Negative); Blood Negative (Negative); Epithelial Cells Rare /HPF (None Seen); Glucose, Urine Negative (Negative); Hyaline Casts NONE SEEN /LPF (0-2); Ketones Negative (Negative); Leukocyte Esterase Trace (Negative); Nitrite Negative (Negative); Ph 6.5 (4.6-8.0); Protein,Urine Dip Negative (Negative); RBC 0-2 /HPF (0-5)
--- NOTE | 2024-08-26 14:36 | XRAY ---
Indication: Numbness. Dysarthria. Abnormal CT head. Sagittal, coronal, and axial MRI brain performed using pre and post T1, T2, FLAIR, diffusion, and ADC sequences as ordered. 20 cc Dotarem contrast used. Comparison: None Age-appropriate global atrophy, minimal periventricular degenerative micro-ischemia bilaterally, and remote lacunar infarct or grossly ganglia. Brainstem demonstrates minimal degenerative micro-ischemia signal. Left mid periventricular white matter demonstrates 2.3 x 1.0 x 4.2 cm focus of restricted signal extending into left basal ganglia favoring acute ischemia. Following gadolinium, there is minimal enhancement. Finding corresponds to CT abnormality. No acute intracranial hemorrhage, abnormal extra-axial fluid collection, or mass effect. Fourth ventricle is midline without hydrocephalus. 7/8 cranial nerve complex bilaterally symmetric. Normal flow-void signal within the major intracerebral circulation. Normal appearing craniocervical junction and sella turcica. Visualized paranasal sinuses are clear. Impression: 1. MRI findings/enhancement favoring acute ischemia left periventricular white matter/basal ganglia corresponding to CT abnormality. No acute hemorrhage/mass effect. 2. Atrophy and degenerative micro-ischemia within normal limits. Remote lacunar infarct right basal ganglia.
[2024-08-26 14:57] VITALS: BP 176/100; PULSE 72; RESP 20; O2SAT 96
[2024-08-26] MEDS ORDERED: BABY ASPIRIN 81 MG CHEW PO ONE (15:12)
--- NOTE | 2024-08-26 15:29 | PCM.CONS ---
History of Present Illness - Reason for Consult Chief Complaint: Right sided numbness and difficulty getting words out Date of Consultation Date: 08/26/24 Reason for Consult: Stroke Requesting Provider: Dr. Sandoval Consulting Provider: FER COLLINS MD History of Present Illness: Reason for Consultation: Stroke/abnormal MRI Chief complaint: Right sided numbness and word finding difficulty Time called: 1452 Patient seen: 1455 HPI: This is a 63 year old left-handed white female with past medical history of hypertension, COPD, tobacco use who came to the hospital because of right sided numbness and word finding difficulty which started yesterday at around 6:00 PM. Patient did not seek medical attention right away. She also fell twice and was having weakness on the right upper extremity. When I evaluated patient, she was slurring her words and was having language difficulties. She got MRI done which showed the stroke in the left periventricular white matter extended into the basal ganglia. She was not candidate for TNK because of symptom onset outside the window. Labs reviewed which showed WBC of 10.1 hemoglobin 14.1 hematocrit 43.2 platelet count of 264 sodium 135 potassium 3.7 chloride 99 bicarb 24 B UN15 creatinine 0.88 urine analysis negative. Personally reviewed the images Vitals blood pressure 117 / 72 oxygen saturation of 96 respiratory rate of 20 pulse rate of 78 Impression: 1. MRI findings/enhancement favoring acute ischemia left periventricular white matter/basal ganglia corresponding to CT abnormality. No acute hemorrhage/mass effect. 2. Atrophy and degenerative micro-ischemia within normal limits. Remote lacunar infarct right basal ganglia. Medical history: see above Surgical history: unknown Family history: hypertension Social history: tobacco use one pack per day REVIEW OF SYSTEMS: 12-point review of system is negative unless otherwise mentioned in the HPI VITALS Vitals reviewed from today Physical Exam: Constitutional: Gen: NAD, pleasant, well nourished HEENT: NC/AT [place], no nuchal rigidity Neurologic Exam: Higher Functions: AA&Ox3; Tracks; Regards Follows simple and complex commands Communicates non fluently Memory is intact Concentration is normal Fund of Knowledge is appropriate. Language : Comprehension is intact; no aphasia; expressive languages nonfluent. mild dysarthria; repetition is intact; naming is normal; CN II : Visual gordon are full; Pupils constrict from 4mm to 2mm under bright light, are equal, round, and react briskly. CN III, IV, : EOMI; CN V : Facial sensation is full and symmetric CN VII : Facial movement is full and symmetric CN VIII : hearing intact BL CN IX, X : ALPHONSO CN XI : SCM 5/5 BL CN XII : Tongue protrudes midline Sensory : intact to soft touch Motor : Strength 5/5 UE and LE BL Deep tendon reflexes : ALPHONSO Plantar response : ALPHONSO Meomew-ia-Pwkp : normal BL, no dysmetria Abnormal Movements : none seen Gait and Station : Deferred NIH Stroke Scale 3 (0) 1a. Level of consciousness (LOC): 0=alert;1=arousable by minor stimulation;2=obtunded or needs strong stimulation to attend;3=unresponsive or reflex responses only (0) 1b. LOC Questions: 0=answers both;1=answers one;2=answers neither (0) 1c. LOC Commands: 0=performs both tasks;1=performs one task;2=performs neither task (0) 2. Best Gaze: 0=normal;1=partial gaze palsy;2=forced deviation or total gaze paresis (0) 3. Visual: 0=normal;1=partial hemianopia;2=complete hemianopia;3=blind (0) 4. Facial palsy: 0=normal;1=minor paresis;2=partial paralysis;3=complete paralysis FOR 5 AND 6 BELOW: 0=normal;1=drifts but maintains in air;2=unable to maintain in air;3=moves but unable to lift against gravity;4=no movement ( )0 (_)1 (_)2 (_)3 (_)4 (_)NA 5a. Motor arm-left (1 )0 (_)1 (_)2 (_)3 (_)4 (_)NA 5b. Motor arm-right ( )0 (_)1 (_)2 (_)3 (_)4 (_)NA 6a. Motor leg-left ( )0 (_)1 (_)2 (_)3 (_)4 (_)NA 6ba. Motor leg-right ( ) 7. Limb ataxia:0=absent;1=unilateral;2=bilateral; NA=unable to test ( ) 8. Sensory: 0=normal;1=mild-moderate loss;2-severe or total loss (1 ) 9. Best language: 0=normal;1=mild-moderate aphasia, some deficits apparent but able to communicate;2=severe aphasia, fragmentary expression only, unable to communicate well;3=global aphasia, mute and no comprehension (1 ) 10. Dysarthria: 0=normal;1=mild-moderate, slurs some words;2=severe, speech mostly unintelligible; NA=unable to test (e.g.,intubation) ( ) 11. Extinction/Inattention: 0=normal;1=visual,tactile,auditory or other extinction to bilateral simultaneous stimulation, but no severe neglect;2=answers neither Imaging CTH Impression: 1. Atrophy and degenerative micro-ischemia within normal limits. Remote lacunar infarct right basal ganglia. 2. Small focus of hypoattenuation left periventricular white matter/basal ganglia favoring ischemia of uncertain chronicity. MRI may yield further information. 3. No acute intracranial hemorrhage or mass effect. CTA CTP ASPECTS Candidate for Thrombolytics: not a candidate as patient was outside the time window Candidate for Intervention: pending Labs LDL A1c Assessment: 63 year old female came to the hospital for right sided numbness, weakness, dysarthria and word finding difficulty. 1-left subcortical stroke: stroke mechanism: unclear at the moment, could be small vessel disease. Patient was not a candidate for TNK as patient was outside the window. CTH was already showing a hypo density in the left subcortical white matter. MRI confirmed the stroke. I personally reviewed all the images. She has mild dysarthria, expressive language is non fluent, subjective numbness on the right upper extremity as well as slight drift on the right upper extremity. Labs reviewed Plan: Permissive hypertension (upto 220) ASA 325 mg now Atorvastatin 40 milligram daily. Would recommend starting maintenance aspirin 81 milligram as well as Plavix 75 milligram for initial 21 days. After 21 days, DC Plavix and continue aspirin 81 milligram (unless there is alternate etiology for stroke such as aifb) CT angiogram head and Neck echo with bubble study. Stroke labs Stroke education Communicated plan with the ER physician. PT OT ST family services worker consult as patient is concerned about dogs at her home and is worried who will take care of them Thank you for allowing us to participate in this patients care. Please call [facility] with questions, concerns, or change in patients neurological status. This consult was performed via secure telemedicine 2 way audio/visual platform, patient consent obtained. Medications & Allergies Home Medications: Home Medication List Albuterol Sulfate [Proair Digihaler] 90 mcg IH DAILY 02/21/21 [History Confirmed 07/19/23] lisinopriL [Lisinopril] 20 mg PO DAILY 02/21/21 [History Confirmed 07/19/23] Fluoxetine HCl [Prozac] 40 mg PO DAILY 07/19/23 [History Confirmed 07/19/23] Metoprolol Succinate 100 mg [Toprol Xl 100 MG] 100 mg PO DAILY 07/19/23 [History Confirmed 07/19/23] Triamterene/Hydrochlorothiazid [Triamterene-Hctz 37.5-25 mg Tb] 1 each PO DAILY 07/19/23 [History Confirmed 07/19/23] Azithromycin [Azithromycin 250 mg Pack] 250 mg PO UD 5 Days #6 tablet 07/20/23 [Rx] Methylprednisolone Packet [Medrol Dosepack] 4 mg PO UD 6 Days #30 packet 07/20/23 [Rx] Allergies/Adverse Reactions: Allergies Allergy/AdvReac Type Severity Reaction Status Date / Time hair dye Allergy Intermediate Rash Uncoded 08/26/24 11:00 - Past Medical History Past Medical History: Yes Neurological History: No Pertinent History ENT History: No Pertinent History Cardiac History: Hypertension Respiratory History: COPD Endocrine Medical History: No Pertinent History Musculoskelatal History: No Pertinent History GI Medical History: No Pertinent History History: No Pertinent History Pyscho-Social History: Attention Deficit Disorder, Depression Reproductive Disorders: No Pertinent History Comment: . - Past Surgical History Past Surgical History: Yes Neuro Surgical History: No Pertinent History Cardiac History: No Pertinent History Respiratory Surgery: No Pertinent History GI Surgical History: No Pertinent History Genitourinary Surgical Hx: No Pertinent History Musculskeletal Surgical Hx: No Pertinent History Female Surgical History: Tubal Ligation Other Surgical History: . - Social History Smoking Status: Current every day smoker How long have you smoked: 35 Exposure to second hand smoke: Yes Alcohol: None Drug Use: marijuana - Social Determinants of Health Will the patient participate in the screening: Declined to provide - Physical Exam Vital Signs: Vital Signs - 24 hr Pulse Resp BP Pulse Ox 08/26/24 14:43 72 20 176/100 96 08/26/24 13:32 74 16 143/63 96 08/26/24 13:01 68 24 167/93 93 L 08/26/24 12:30 78 20 117/72 96 08/26/24 12:00 67 22 126/91 97 08/26/24 11:31 68 20 124/85 96 08/26/24 11:11 97 08/26/24 11:09 79 17 169/103 97 08/26/24 11:08 80 96 08/26/24 11:07 96 Results - Labs Lab/Micro Results: Lab Results-Last 24 Hours 08/26/24 08/26/24 08/26/24 Range/Units 11:25 11:25 11:25 WBC 10.1 H (3.98-10.04) x10^3/uL RBC 5.33 H (3.93-5.22) x10^6/uL Hgb 14.1 (11.2-15.7) g/dL Hct 43.2 (34.1-44.9) % MCV 81.1 (79.4-94.8) fL MCH 26.5 (25.6-32.2) pg MCHC 32.6 (32.2-35.5) g/dL RDW 14.0 (11.7-14.4) % Plt Count 264 (182-369) x10^3/uL MPV 12.1 (9.4-12.3) fL Gran % 56.4 (34.0-71.1) % Immature Gran % (Auto) 0.7 H (0.001-0.429) % Nucleat RBC Rel Count 0.0 (0.00-0.2) % Eos # (Auto) 0.07 (0.04-0.36) x10^3/uL Immature Gran # (Auto) 0.07 H (0.001-0.031) x10^3u/L Absolute Lymphs (auto) 3.43 (1.18-3.74) x10^3/uL Absolute Monos (auto) 0.80 (0.24-0.86) x10^3/uL Absolute Nucleated RBC 0.00 (0.00-0.012) x10^3u/L Lymphocytes % 33.9 (19.3-51.7) % Monocytes % 7.9 (4.7-12.5) % Eosinophils % 0.7 (0.7-5.8) % Basophils % 0.4 (0.1-1.2) % Absolute Granulocytes 5.72 (1.56-6.13) x10^3/uL Basophils # 0.04 (0.01-0.08) x10^3/uL PT 11.0 (9.4-12.5) SECONDS INR 1.01 (0.8-3.0) Sodium 135 (135-145) mmol/L Potassium 3.7 (3.5-5.1) mmol/L Chloride 99 (98-107) mmol/L Carbon Dioxide 24 (22-30) mmol/L Anion Gap 16.0 H (5-15) MEQ/L BUN 15 (7-17) mg/dL Creatinine 0.88 (0.52-1.04) mg/dL Estimated GFR 74.3 ML/MIN Glucose 121 H (74-106) mg/dL Calcium 9.5 (8.4-10.2) mg/dL Total Bilirubin 0.60 (0.2-1.3) mg/dL AST 34 (14-36) U/L ALT 21 (0-35) U/L Alkaline Phosphatase 72 (38-126) U/L Troponin I (0.000-0.033) ng/mL Serum Total Protein 8.1 (6.3-8.2) g/dL Albumin 4.6 (3.5-5.0) g/dL Urine Color (Yellow) Urine Appearance (Clear) Urine pH (4.6-8.0) Ur Specific [place] (1.005-1.030) Urine Protein (Negative) Urine Glucose (UA) (Negative) mg/dL Urine Ketones (Negative) Urine Blood (Negative) Urine Nitrite (Negative) Urine Bilirubin (Negative) Urine Urobilinogen (0.2) mg/dL Ur Leukocyte Esterase (Negative) U Hyaline Cast (Auto) (0-2) /LPF Urine Microscopic RBC (0-5) /HPF Urine Microscopic WBC (0-5) /HPF Ur Epithelial Cells (None Seen) /HPF Urine Bacteria (None Seen) /HPF Urine Culture Reflexed (NO) 08/26/24 08/26/24 Range/Units 11:25 12:30 WBC (3.98-10.04) x10^3/uL RBC (3.93-5.22) x10^6/uL Hgb (11.2-15.7) g/dL Hct (34.1-44.9) % MCV (79.4-94.8) fL MCH (25.6-32.2) pg MCHC (32.2-35.5) g/dL RDW (11.7-14.4) % Plt Count (182-369) x10^3/uL MPV (9.4-12.3) fL Gran % (34.0-71.1) % Immature Gran % (Auto) (0.001-0.429) % Nucleat RBC Rel Count (0.00-0.2) % Eos # (Auto) (0.04-0.36) x10^3/uL Immature Gran # (Auto) (0.001-0.031) x10^3u/L Absolute Lymphs (auto) (1.18-3.74) x10^3/uL Absolute Monos (auto) (0.24-0.86) x10^3/uL Absolute Nucleated RBC (0.00-0.012) x10^3u/L Lymphocytes % (19.3-51.7) % Monocytes % (4.7-12.5) % Eosinophils % (0.7-5.8) % Basophils % (0.1-1.2) % Absolute Granulocytes (1.56-6.13) x10^3/uL Basophils # (0.01-0.08) x10^3/uL PT (9.4-12.5) SECONDS INR (0.8-3.0) Sodium (135-145) mmol/L Potassium (3.5-5.1) mmol/L Chloride (98-107) mmol/L Carbon Dioxide (22-30) mmol/L Anion Gap (5-15) MEQ/L BUN (7-17) mg/dL Creatinine (0.52-1.04) mg/dL Estimated GFR ML/MIN Glucose (74-106) mg/dL Calcium (8.4-10.2) mg/dL Total Bilirubin (0.2-1.3) mg/dL AST (14-36) U/L ALT (0-35) U/L Alkaline Phosphatase (38-126) U/L Troponin I < 0.012 (0.000-0.033) ng/mL Serum Total Protein (6.3-8.2) g/dL Albumin (3.5-5.0) g/dL Urine Color Yellow (Yellow) Urine Appearance Clear (Clear) Urine pH 6.5 (4.6-8.0) Ur Specific [place] 1.010 (1.005-1.030) Urine Protein Negative (Negative) Urine Glucose (UA) Negative (Negative) mg/dL Urine Ketones Negative (Negative) Urine Blood Negative (Negative) Urine Nitrite Negative (Negative) Urine Bilirubin Negative (Negative) Urine Urobilinogen 1.0 A (0.2) mg/dL Ur Leukocyte Esterase Trace A (Negative) U Hyaline Cast (Auto) NONE SEEN (0-2) /LPF Urine Microscopic RBC 0-2 (0-5) /HPF Urine Microscopic WBC 3-5 (0-5) /HPF Ur Epithelial Cells Rare (None Seen) /HPF Urine Bacteria None Seen (None Seen) /HPF Urine Culture Reflexed NO (NO) Accuchecks Date 08/26/24 Time 11:13 - Radiology Impressions Radiology Exams & Impressions: Radiology Procedures Category Date Time Status HEAD WITHOUT CONTRAST [CT] Stat Exams 08/26/24 10:58 Completed MRI BRAIN W & W/O CONTRAST [MRI] Stat Exams 08/26/24 11:48 Completed
== END 2024-08-26 15:31 | disposition left against medical advice (07) ==
LOC: ED 10:55
DX: I63.9 Cerebral infarction, unspecified (principal); R20.2 Paresthesia of skin; R47.1 Dysarthria and anarthria; I10 Essential (primary) hypertension; Z79.899 Other long term (current) drug therapy; Z72.0 Tobacco use
CPT/HCPCS: 36415; 70450; 70553; 80053; 81001; 84484; 85025; 85610; 93005; 93041; 94760; 99285; Q3014; 99284; 99291